=== PATIENT | male | born 1940 | race Caucasian/White ===

== ENCOUNTER 2016-11-19 14:18 | Outpatient (CLI) | payer OTHER ==
[2015-11-07 17:54] VITALS: BP 150/57
[2016-11-19 14:49] LABS: BASOPHILS % 0.4 (0.0-1.5); EOSINOPHILS % 14.1 % (0.0-6.8); LYMPHOCYTES # 1.4 # k/uL (0.6-4.0); MEAN CORPUSCULAR HEMOGLOBIN 31.9 pg (28.0-34.0); MONOCYTES # 0.5 # k/uL (0.0-0.9); MONOCYTES % 6.6 % (0.0-11.0); NEUTROPHILS # 4.7 # k/uL (1.4-7.7)
[2016-11-19 15:07] LABS: eGFR (African) 58; eGFR (Non-African) 48
== END 2016-11-19 14:20 ==
LOC: LAB 14:18
PROVIDERS: ATTEND Family Medicine
DX: I10 Essential (primary) hypertension (principal); D64.9 Anemia, unspecified
CPT/HCPCS: 36415; 80048; 85025

== ENCOUNTER 2016-12-27 10:50 | Outpatient (CLI) | payer OTHER ==
[2015-11-07 17:54] VITALS: BP 150/57
[2016-12-27 11:08] LABS: eGFR (African) 58; eGFR (Non-African) 48
[2016-12-27 11:46] LABS: MEAN CORPUSCULAR HEMOGLOBIN 31.6 pg (28.0-34.0)
[2016-12-27 12:29] LABS: EOSINOPHILS % 11 % (0-7); MONOCYTES % 5 % (0-11); SEGMENTED NEUTROPHILS % 72 % (39-79)
== END 2016-12-27 10:52 ==
LOC: LABRHC 10:50
PROVIDERS: ATTEND Family Medicine
DX: D50.0 Iron deficiency anemia secondary to blood loss (chronic) (principal)
CPT/HCPCS: 80048; 85025

== ENCOUNTER 2017-01-08 13:08 | Outpatient (CLI) | payer OTHER ==
[2015-11-07 17:54] VITALS: BP 150/57
[2017-01-08 13:23] LABS: BASOPHILS % 0.4 (0.0-1.5); EOSINOPHILS % 13.4 % (0.0-6.8); LYMPHOCYTES # 1.1 # k/uL (0.6-4.0); MEAN CORPUSCULAR HEMOGLOBIN 31.3 pg (28.0-34.0); MONOCYTES # 0.4 # k/uL (0.0-0.9); MONOCYTES % 6.3 % (0.0-11.0); NEUTROPHILS # 3.5 # k/uL (1.4-7.7)
== END 2017-01-08 13:10 ==
LOC: LAB 13:08
PROVIDERS: ATTEND Family Medicine
DX: I10 Essential (primary) hypertension (principal); D64.9 Anemia, unspecified
CPT/HCPCS: 36415; 85025

== ENCOUNTER 2017-01-14 15:36 | Observation (INO) | payer OTHER ==
[2017-01-14 15:42] LABS: BASOPHILS % 0.3 (0.0-1.5); EOSINOPHILS % 9.5 % (0.0-6.8); MEAN CORPUSCULAR HEMOGLOBIN 31.1 pg (28.0-34.0); MONOCYTES # 0.3 # k/uL (0.0-0.9); MONOCYTES % 6.3 % (0.0-11.0); NEUTROPHILS # 3.4 # k/uL (1.4-7.7)
[2017-01-14] MEDS ORDERED: SALINE FLUSH 10 ML DISP.SYRIN IVF ONE (16:15)
[2017-01-14] MEDS ORDERED: diphenhydrAMINE HCL 25 MG TABLET PO PRN ×2 (16:30→18:41)
[2017-01-14] MEDS ORDERED: ACETAMINOPHEN 325 MG TABLET PO PRN ×2 (16:30→18:42)
[2017-01-14 17:22] VITALS: BMI 21.2
[2017-01-14] MEDS ORDERED: WARFARIN SODIUM 1 MG TABLET PO SCH (18:00)
--- NOTE | 2017-01-14 18:16 | History and Physical Report ---
History of Present Illnes - History of Present Illness Reason for Visit: Anemia History of Present Illness: This is a 76 year old male well known to myself, whom I called yesterday due to progressively dropping hemoglobin. His hemoglobin today as 7.8, down from 8.1 last week. Due to increased dyspnea and weakness as well as decreased exercise tolerance, he was admitted as observatin for tranfusion of two units of packed red blood cells. - Past Medical History Cardiac: AFIB, CHF, HTN Pulmonary: COPD Heme/Onc: Iron deficiency anemia - Past Surgical History Past Surgical History: None (patient unable to provide) - Past Social History Smoke: 1 pack per day Alcohol: Rare Drugs: None Lives: With Family (), Other (daughter in the local area) Domestic Violence: Negative - Health Maintenance Health Maintenance: Influenza Vaccine, Pneumococcal Vaccine Influenza Vaccine: Current for this Influenza Season Pneumonia Vaccine: Yes Resuscitation Status: Resusciation Status Resuscitation Status Full Code - Unable to Obtain History Unable to Obtain: No Review of Systems - Review of Systems Constitutional: negative: Fever, Chills Eyes: negative: pain ENT: negative: Ear Pain, Ear Discharge Respiratory: Cough, Shortness of Breath, SOB with Excertion. negative: Hemoptysis Cardiovascular: negative: Chest Pain Gastrointestinal: negative: Nausea, Vomiting Genitourinary: negative: Dysuria, Frequency Musculoskeletal: negative: Neck Pain, Shoulder Pain, Arm Pain Skin: negative: Rash Neurological: Weakness. negative: Confusion, Seizures - Medications/Allergies Allergies/Adverse Reactions: Allergies Allergy/AdvReac Type Severity Reaction Status Date / Time levofloxacin Allergy Intermediate bleeding Unverified 03/11/16 16:22 trazodone Allergy Mild Nausea/Vomi Unverified 11/28/15 14:49 ting Sulfa (Sulfonamide Allergy Verified 09/27/15 05:32 Antibiotics) [Sulfa(Sulfonamide Antibiotics)] Current Inpatient Medications: Current Inpatient Medications Acetaminophen (Tylenol) 650 mg PO Q4H PRN PRN Reason: Fever >101 Albuterol/Ipratropium (Duoneb) 3 ml NEB Q4 PRN PRN Reason: Wheezing Budesonide (Pulmicort) 0.5 mg NEB BID LCU Carvedilol (Coreg) 25 mg PO BID LUC Diphenhydramine HCl (Benadryl) 25 mg PO Q4 PRN PRN Reason: Allergy Symptoms Ferrous Sulfate (Feosol) 325 mg PO 1100 LUC Furosemide (Lasix) 20 mg IVP 714 LUC Lisinopril (Prinivil) 40 mg PO DAILY LUC Simvastatin (Zocor) 20 mg PO HS LUC Warfarin Sodium (Coumadin) 3 mg PO [id number] LUC Exam - Exam Vital Signs: Vital Signs (72 hours) 01/14/17 16:34 Temperature 99.2 F Pulse Rate [ 85 Right Radial] Respiratory 18 Rate Blood Pressure 165/76 [Right Arm] O2 Sat by Pulse 91 L Oximetry General: Alert, Oriented to Person, Oriented to Place, Oriented to Time, Cooperative, Moderate distress (respiratory) HEENT: Atraumatic, PERRLA, EOMI, Other (conjunctival pallor is noted) Neck: No: Stridor Lungs: Wheezes, Prolonged Expiration, Decreased Air Movement Cardiovascular: Irregularly Irregular Murmur: Systolic Murmur Murmur Location: Left Sternal Boarder Heart Murmur Grade: II Abdomen: Normal bowel sounds, Soft Genitourinary: No: Right Inguinal Hernia, Left Inguinal Hernia Male Genitourinary: No: Scrotal Edema Female Genitourinary: No: Other Integumentary: Pale Extremities: No clubbing, No cyanosis, Other (edema is 2+ in RLE, trace edema in the dorsum of the left foot) Neurological: Normal speech, Strength Equal Bilat Psych/Mental Status: Mental status NL - Laboratory Results Laboratory Results: Laboratory Results 01/14/17 15:40 WBC 5.40 RBC 2.51 L Hgb 7.8 L Hct 24.7 L MCV 98.3 MCH 31.1 MCHC 31.7 RDW 15.2 H Plt Count 233 Neut % (Auto) 64.1 Lymph % (Auto) 18.4 [place] % (Auto) 6.3 Eos % (Auto) 9.5 H Baso % (Auto) 0.3 Neut # 3.4 Lymph # 1.0 [place] # 0.3 Eos # 0.5 Baso # 0.0 Reactive Lymphs % 1.4 Reactive Lymphs # 0.1 Assessment/Plan - Assessment/Plan (1) Anemia Status: Acute Current Visit: No Qualifiers: Anemia type: other cause Other causes of anemia: acute posthemorrhagic Qualified Code(s): D62 - Acute posthemorrhagic anemia Assessment: Admit for transfusion of two units of packed red blood cells Plan: Check CBC in am (2) COPD (chronic obstructive pulmonary disease) Status: Acute Current Visit: No Qualifiers: COPD type: COPD with acute exacerbation Qualified Code(s): J44.1 - Chronic obstructive pulmonary disease with (acute) exacerbation Assessment: Continue duoneb treatments (3) CHF (congestive heart failure) Status: Chronic Current Visit: No Qualifiers: Congestive heart failure type: combined Congestive heart failure chronicity : acute on chronic Qualified Code(s): I50.43 - Acute on chronic combined systolic (congestive) and diastolic (congestive) heart failure Assessment: lasix after each unit of packed red blood cells VTE Assessment - RISK FACTOR SCORE VTE RISK FACTOR SCORES: AGE OVER 60 YEARS, ACUTE RESPIRATORY FAILURE/SEVERE COPD - RISK VTE MODERATE RISK: SCORE OF 2 (RISK PROXIMAL DVT 2-4%) PROPHYAXIS NEEDED ( Already on warfarin with therapeutic INR, ordered ANA crawford)
[2017-01-14] MEDS: IPRATROPIUM/ALBUTEROL SULFATE 3 ML AMPUL.NEB NEB PRN (18:17)
[2017-01-14] MEDS ORDERED: ACETAMINOPHEN 325 MG TABLET ONE (18:30)
[2017-01-14] MEDS ORDERED: CARVEDILOL 12.5 MG TABLET PO ONE ×2 (18:30→20:44)
[2017-01-14] MEDS ORDERED: diphenhydrAMINE HCL 25 MG TABLET PO ONE (18:39)
[2017-01-14] MEDS ORDERED: 0.9 % SODIUM CHLORIDE 100 ML IV ONE (18:44)
[2017-01-14] MEDS ORDERED: CARVEDILOL 25 MG TABLET PO SCH (21:00)
[2017-01-14] MEDS ORDERED: BUDESONIDE 0.5MG/2ML AMPUL.NEB NEB SCH (21:00)
[2017-01-14] MEDS ORDERED: SIMVASTATIN 20 MG TABLET PO SCH (21:00)
[2017-01-14] MEDS: FUROSEMIDE 20 MG/2 ML VIAL IVP SCH (22:20)
[2017-01-14 23:10] LABS: IRON SERUM 35 ug/dL (59-158); SERUM IRON 35 ug/dL (59-158)
[2017-01-15] MEDS ORDERED: SALINE FLUSH 10 ML DISP.SYRIN IVF ONE (02:57)
[2017-01-15] MEDS: FUROSEMIDE 20 MG/2 ML VIAL IVP SCH ×2 (03:04→07:13)
[2017-01-15] MEDS ORDERED: CARVEDILOL 12.5 MG TABLET PO ONE (05:46)
[2017-01-15] MEDS: IPRATROPIUM/ALBUTEROL SULFATE 3 ML AMPUL.NEB NEB PRN (07:11)
[2017-01-15 07:16] LABS: MEAN CORPUSCULAR HEMOGLOBIN 29.6 pg (28.0-34.0)
[2017-01-15] MEDS ORDERED: LISINOPRIL 20 MG TABLET PO SCH (09:00)
[2017-01-15] MEDS ORDERED: CARVEDILOL 12.5 MG TABLET PO SCH (09:00)
[2017-01-15 09:48] VITALS: BP 121/70
[2017-01-15] MEDS ORDERED: FERROUS SULFATE 325 MG TABLET PO SCH (11:00)
--- NOTE | 2017-01-15 14:19 | Discharge Summary ---
DATE OF ADMISSION: January 14, 2017 DATE OF DISCHARGE: January 15, 2017 DIAGNOSES ON THIS HOSPITALIZATION: 1. Anemia. 2. Chronic obstructive pulmonary disease (COPD). 3. Dyspnea. 4. Congestive heart failure. SUMMARIZATION OF ADMISSION HISTORY AND PHYSICAL: This is a 76-year-old male who I saw in the clinic on the day of admission. At that time, he was noted to be having markedly increased dyspnea and shortness of breath. His hemoglobin at that point was noted to be 7.8. It has been drifting down slowly and as a result, he was admitted for transfusion of 2 units of packed red blood cells. HOSPITAL COURSE: He was admitted. His initial hemoglobin was as previously stated and he was transfused 2 units of packed red blood cells; and by the next morning, his hemoglobin was 9.5. Iron studies showed him to be low on iron, so we will be setting him up for Venofer infusions as an outpatient. We will see him back next week to arrange that. CONDITION ON DISCHARGE: Discharge is to home in improved condition. JUNIOR
== END 2017-01-15 10:00 | disposition home or self-care (01) ==
LOC: LABRHC 15:36 → SOUTH 16:00
PROVIDERS: ADMIT Family Medicine; ATTEND Family Medicine
DX: D64.9 Anemia, unspecified (principal); I50.9 Heart failure, unspecified; J44.9 Chronic obstructive pulmonary disease, unspecified; R06.02 Shortness of breath
CPT/HCPCS: 36415; 80048; 82608; 82746; 83540; 83550; 85025; 85027; 85045; 86885; 86900; 86901; 86920; 94640; 94760; G0378; J1940; J7626; Q0163; 36430; 96361; 96374; 96376; P9040; S1016

== ENCOUNTER 2017-01-16 04:47 | Inpatient (IN) | payer OTHER ==
[2017-01-16 05:20] LABS: BASOPHILS % 0.6 (0.0-1.5); LYMPHOCYTES # 0.9 # k/uL (0.6-4.0); MEAN CORPUSCULAR HEMOGLOBIN 30.1 pg (28.0-34.0); MONOCYTES # 0.5 # k/uL (0.0-0.9); MONOCYTES % 7.1 % (0.0-11.0); NEUTROPHILS # 4.5 # k/uL (1.4-7.7)
[2017-01-16 05:34] LABS: eGFR (African) 58; eGFR (Non-African) 48
[2017-01-16] MEDS ORDERED: FUROSEMIDE 40 MG/4 ML VIAL IVP ONE (06:11)
--- NOTE | 2017-01-16 06:18 | ED Physician Documentation ---
Dyspnea - HISTORIAN Historian: patient - HPI Stated Complaint: Dyspnea Chief Complaint: Dyspnea Onset: hours Duration: continues in ED Initiating Event: other (admission, 2 units RBCs) Severity: moderate Exacerbated By: exertion, laying flat Associated Symptoms: none. denies: productive cough Further Comments: yes (76 year old male patient brought in via EMS with c/o dyspnea. Patient states he cannot lie back to sleep, c/o difficulty breathing with minimal exerction. EMS gave duoneb and albuterol in route for "tightness" . Sat 96% on 3L NC) - ROS CONST: recent illness (Anemia requiring transfusion) EYES/ENT: none GI/: none NEURO/PSYCH: denies: headache MS/SKIN/LYMPH: none - PAST HX Lung Disease: COPD, other (Fe Def Anemia) Cardiac Disease: CHF, A-Fib, other (HLD) PE Risk Factors: hypertension Surgeries/Procedures: appendectomy, other (Hemorrhoidectomy) Immunizations: UTD Allergies/Adverse Reactions: Allergies Allergy/AdvReac Type Severity Reaction Status Date / Time levofloxacin Allergy Intermediate bleeding Verified 01/16/17 05:22 trazodone Allergy Mild Nausea/Vomi Verified 01/16/17 05:22 ting Sulfa (Sulfonamide Allergy Verified 01/16/17 05:22 Antibiotics) [Sulfa(Sulfonamide Antibiotics)] Home Medications: Ambulatory Orders Medication Instructions Recorded Oxygen 4 lt NS SEE.INSTRUCTIONS 07/06/13 Potassium Chloride [Klor-Con M10] 10 meq PO D 05/29/14 Diclofenac Sodium [Voltaren] 75 mg PO BID 10/22/15 Warfarin Sodium [Warfarin Sodium] 2.5 mg PO BID 01/16/17 Warfarin Sodium [Warfarin Sodium] 2.5 mg PO MF12 01/16/17 - SOCIAL HX Smoking History: cigarettes - FAMILY HX Family History: denies: none - VITAL SIGNS Vital Signs: Vital Signs Temp Pulse Resp BP Pulse Ox 98 F 75 20 169/65 100 01/16/17 04:54 01/16/17 05:30 01/16/17 04:54 01/16/17 04:54 01/16/17 05:30 - REVIEWED ASSESSMENTS Nursing Assessment Reviewed: Yes Vitals Reviewed: Yes Progress - Progress Progress: 0615 Reviewed lab and xray results with patient and family, recommended admission for treatment of CHF. Patient prefers admission to [facility], does not want to transfer to higher level of care. [address] Ramirez, will admit acute for treatment of CHF. ED Results Lab/Radiology - Lab Results Lab Results: Lab Results 01/16/17 01/16/17 01/16/17 05:15 05:15 05:15 WBC 6.80 K/ul K/ul (4.00-12.00) RBC 3.34 M/ul L M/ul (3.90-5.20) Hgb 10.1 g/dL L g/dL (12.0-18.0) Hct 31.9 % L % (37.0-53.0) MCV 95.5 fl fl (80.0-100.0) MCH 30.1 pg pg (28.0-34.0) MCHC 31.5 g/dL g/dL (30.0-36.0) RDW 16.1 % H % (11.3-14.3) Plt Count 191 K/mm3 K/mm3 (130-400) Neut % (Auto) 65.2 % % (39.0-79.0) Lymph % (Auto) 12.8 % L % (16.0-50.0) [place] % (Auto) 7.1 % % (0.0-11.0) Eos % (Auto) 13.0 % H % (0.0-6.8) Baso % (Auto) 0.6 (0.0-1.5) Neut # 4.5 # k/uL # k/uL (1.4-7.7) Lymph # 0.9 # k/uL # k/uL (0.6-4.0) [place] # 0.5 # k/uL # k/uL (0.0-0.9) Eos # 0.9 # k/uL H # k/uL (0.0-0.6) Baso # 0.0 # k/uL # k/uL (0.0-0.5) Reactive Lymphs % 1.3 % % (0.0-5.0) Reactive Lymphs # 0.1 # k/uL # k/uL (0.0-0.8) Sodium 137 mmol/L mmol/L (136-145) Potassium 4.0 mmol/L mmol/L (3.5-5.0) Chloride 99 mmol/L mmol/L (98-110) Carbon Dioxide > 40 mmol/L H mmol/L (20-32) BUN 27 mg/dL H mg/dL (10-26) Creatinine 1.5 mg/dL mg/dL (0.4-1.5) Estimated Creat Clear 37 Est GFR ( Amer) 58 L (60 - ) Est GFR (Non-Af Amer) 48 L (60 - ) Glucose 104 mg/dL H mg/dL (70-99) Calcium 10.4 mg/dL mg/dL (8.5-10.5) Total Bilirubin 0.6 mg/dL mg/dL (0.2-1.2) AST 18 U/L U/L (0-41) ALT 11 U/L U/L (0-45) Alkaline Phosphatase 62 U/L U/L (46-116) Troponin I < 0.03 ng/mL L ng/mL (0.03-0.06) NT-Pro-B Natriuret Pep 6078.9 pg/mL H pg/mL (15.0-450.0) Total Protein 7.2 g/dL g/dL (6.0-8.5) Albumin 4.0 g/dL g/dL (3.0-5.5) - Radiology Radiology Impressions: Portable chest History: Dyspnea Findings: Bilateral costophrenic sulcus blunting, cardiomegaly, and aortic atherosclerosis are observed. Hazy opacity is present at each lung base. Impression: Small pleural effusions, cardiomegaly, atherosclerosis, and possibly mild pulmonary edema, suggesting congestive heart failure. Electronically signed on Jan 16, 2017 5:26:17 AM CRUISE AGENT by: Blanco Youngblood - Orders Orders: ED Orders Category Date Time Status Continuous EKG monitoring Q30M Care 01/16/17 04:57 Active Continuous Pulse Oximetry Q30M Care 01/16/17 04:[address] Saline Lock/IV NOW Care 01/16/17 04:57 Active CHEST 1 VIEW [RAD] Stat Exams 01/16/17 04:58 Taken BNP [NT-proBNP] Stat Lab 01/16/17 05:15 Completed CBC/PLATELET/DIFF Stat Lab 01/16/17 05:15 Completed CMP Stat Lab 01/16/17 05:15 Completed TROPONIN I (cTnI) Stat Lab 01/16/17 05:15 Completed Furosemide [Lasix] Med 01/16/17 06:11 Discontinued 40 mg IVP NOW ONE Oxygen Daily Oxygen 01/16/17 05:00 Ordered Dyspnea Physical Exam - EXAM General Appearance: moderate distress EENT: eye inspection normal, pharynx normal, no signs of dehydration, ARNIE. No : dry mucous membranes Respiratory: no resp. distress, no pain on inspiration, speaks full sentences, decreased air movement (bases bilaterally, no wheezing) CVS: no gallop, no friction rub, pulses full, pulses equal, irregularly irreg. rhythm, murmur (MR) Abdomen: non-tender, no organomegaly, no distention, no ascites Skin: no rash, pallor, warm, nml palp., dry Extremities: non-tender, no evidence of injury, no edema, other (generalized weakness) Neuro/Psych: oriented x3, CN's nml as tested, motor nml, sensation nml, mood/ affect nml Discharge Clincal Impression: CHF (congestive heart failure) Qualifiers: Congestive heart failure type: combined Congestive heart failure chronicity: acute on chronic Qualified Code(s): I50.43 - Acute on chronic combined systolic (congestive) and diastolic (congestive) heart failure Referrals: Lance Ramirez MD [Primary Care Provider] - 2 Days Home Medications: Ambulatory Orders Oxygen 4 lt NS SEE.INSTRUCTIONS 07/06/13 Potassium Chloride [Klor-Con M10] 10 meq PO D 05/29/14 Diclofenac Sodium [Voltaren] 75 mg PO BID 10/22/15 Warfarin Sodium [Warfarin Sodium] 2.5 mg PO BID 01/16/17 Warfarin Sodium [Warfarin Sodium] 2.5 mg PO MF12 01/16/17 Condition: Fair Decision to Admit: [id number] Decision Time: 06:23
[2017-01-16] MEDS ORDERED: OXYGEN NS SCH (06:45)
--- NOTE | 2017-01-16 07:25 | Diagnostic Imaging Report ---
JUNE RED (BRANCH OPERATIONS SPECIALIST) - ER [facility] [address] [facility].[address] [address] Report Submission Date: Jan 16, 2017 5:26:17 AM BETTING CLERK Patient Study Name: ARMOND DAVIS Date: Jan 16, 2017 5:16:43 AM BETTING CLERK Modality Type: CR Gender: M Description: CHEST : 38 Institution: [facility] Physician: JUNE RED (BRANCH OPERATIONS SPECIALIST) - ER Portable chest History: Dyspnea Findings: Bilateral costophrenic sulcus blunting, cardiomegaly, and aortic atherosclerosis are observed. Hazy opacity is present at each lung base. Impression: Small pleural effusions, cardiomegaly, atherosclerosis, and possibly mild pulmonary edema, suggesting congestive heart failure. Electronically signed on Jan 16, 2017 5:26:17 AM BETTING CLERK by: Blanco PACHECO
[2017-01-16 08:41] VITALS: BMI 21.1
[2017-01-16] MEDS: BUDESONIDE 0.5MG/2ML AMPUL.NEB NEB SCH (10:13)
[2017-01-16] MEDS: IPRATROPIUM/ALBUTEROL SULFATE 3 ML AMPUL.NEB NEB SCH ×4 (10:16→20:58)
--- NOTE | 2017-01-16 11:15 | History and Physical Report ---
History of Present Illnes - History of Present Illness Reason for Visit: Congestive Heart Failure, COPD History of Present Illness: This is a 76 year old male well known to myself. He was in the hospital earlier this week due to dyspnea and a hemoglobin of 7.8. He was transfused 2 units of packed red blood cells and was initially feeling better. He was given extra IV lasix after each unit of PRBC, however despite this, he developed an exacerbation of his congestive heart failure. His BNP was elevated at 6,000+. His hemoglobin has improved to 10.1 from 9.5 on discharge. - Past Medical History Cardiac: AFIB, CHF, HTN Pulmonary: COPD Heme/Onc: Iron deficiency anemia - Past Surgical History Past Surgical History: None (patient unable to provide) - Past Social History Smoke: 1 pack per day Alcohol: Rare Drugs: None Lives: With Family (), Other (daughter in the local area) Domestic Violence: Negative - Health Maintenance Health Maintenance: Influenza Vaccine, Pneumococcal Vaccine Influenza Vaccine: Current for this Influenza Season Pneumonia Vaccine: Yes Resuscitation Status: Resusciation Status Resuscitation Status Do Not Resuscitate - Unable to Obtain History Unable to Obtain: No Review of Systems - Review of Systems Constitutional: negative: Fever, Chills, Sweats Eyes: negative: pain, vision change ENT: negative: Ear Pain, Ear Discharge Respiratory: Cough, Shortness of Breath, SOB with Excertion. negative: Hemoptysis Cardiovascular: negative: Chest Pain, Palpitations Gastrointestinal: negative: Nausea, Vomiting Genitourinary: negative: Dysuria, Other Musculoskeletal: negative: Neck Pain Skin: negative: Rash, Lesions Neurological: Weakness. negative: Confusion - Medications/Allergies Allergies/Adverse Reactions: Allergies Allergy/AdvReac Type Severity Reaction Status Date / Time levofloxacin Allergy Intermediate bleeding Verified 01/16/17 05:22 trazodone Allergy Mild Nausea/Vomi Verified 01/16/17 05:22 ting Sulfa (Sulfonamide Allergy Verified 01/16/17 05:22 Antibiotics) [Sulfa(Sulfonamide Antibiotics)] Home Medications: Home Medications Warfarin Sodium [Warfarin Sodium] 2.5 mg PO M1800 01/16/17 Warfarin Sodium [Warfarin Sodium] 5 mg PO [id number] 01/16/17 Current Inpatient Medications: Current Inpatient Medications Albuterol/Ipratropium (Duoneb) 3 ml NEB QID LUC Last Admin: 01/16/17 10:16 Dose: 3 ml Amlodipine Besylate (Norvasc) 10 mg PO DAILY [facility] Budesonide (Pulmicort) 0.5 mg NEB BID [facility] Last Admin: 01/16/17 10:13 Dose: 0.5 mg Carvedilol (Coreg) 25 mg PO BID [facility] Lisinopril (Prinivil) 40 mg PO DAILY [facility] Potassium Chloride (Klor-Con M20) 20 meq PO DAILY [facility] Simvastatin (Zocor) [address] [facility] Exam - Exam Vital Signs: Vital Signs (72 hours) 01/16/17 01/16/17 01/16/17 06:44 08:20 08:38 Temperature 98.2 F Pulse Rate 64 Pulse Rate [ 79 Left Pulse ox] Pulse Rate [ 84 Right] Respiratory 20 20 Rate Blood Pressure 162/66 149/73 [Right Arm] O2 Sat by Pulse 100 99 99 Oximetry 01/16/17 01/16/17 01/16/17 09:00 10:00 10:30 Temperature 98.2 F Pulse Rate 68 74 Pulse Rate [ Left Pulse ox] Pulse Rate [ 83 Right] Respiratory 20 Rate Blood Pressure 162/62 [Right Arm] O2 Sat by Pulse 99 100 100 Oximetry General: Alert, Oriented to Person, Oriented to Place, Oriented to Time, Cooperative, No acute distress HEENT: Atraumatic, PERRLA, EOMI Neck: No: Stridor, Rigidity Lungs: Wheezes, Prolonged Expiration, Decreased Air Movement Cardiovascular: Irregularly Irregular Murmur: Systolic Murmur Heart Murmur Grade: II Abdomen: Normal bowel sounds, Soft, No tenderness Genitourinary: No: Right Inguinal Hernia, Left Inguinal Hernia Male Genitourinary: No: Scrotal Edema Female Genitourinary: No: Other Integumentary: Normal, [place], Warm, Dry Extremities: Other (edema is improved) Neurological: Normal speech, Strength Equal Bilat Psych/Mental Status: Mental status NL Assessment/Plan - Assessment/Plan (1) CHF (congestive heart failure) Status: Chronic Current Visit: Yes Qualifiers: Congestive heart failure type: combined Congestive heart failure chronicity : acute on chronic Qualified Code(s): I50.43 - Acute on chronic combined systolic (congestive) and diastolic (congestive) heart failure Assessment: Continue aggressive diuresis Follow electrolytes Hope for discharge tomorrow am (2) Anemia Status: Acute Current Visit: No Qualifiers: Anemia type: other cause Other causes of anemia: acute posthemorrhagic Qualified Code(s): D62 - Acute posthemorrhagic anemia Assessment: improved after transfusion (3) COPD (chronic obstructive pulmonary disease) Status: Acute Current Visit: No Qualifiers: COPD type: COPD with acute exacerbation Qualified Code(s): J44.1 - Chronic obstructive pulmonary disease with (acute) exacerbation Assessment: Chronic Plan: Encouraged smoking cessation Nebulizer treatments VTE Assessment - RISK FACTOR SCORE VTE RISK FACTOR SCORES: AGE OVER 60 YEARS, ACUTE RESPIRATORY FAILURE/SEVERE COPD , CONGESTIVE HEART FAILURE OR MYOCARDIAL INFARCTION - RISK VTE HIGH RISK: SCORE OF 3-4 (RISK PROXIMAL DVT 4-8%) PROPHYLAXIS NEEDED (has therapeutic INR, ANA lilibethe ordered)
[2017-01-16] MEDS ORDERED: SIMVASTATIN 20 MG TABLET ONE ×2 (11:31→13:14)
[2017-01-16] MEDS: LISINOPRIL 20 MG TABLET PO SCH (12:25)
[2017-01-16] MEDS: amLODIPine BESYLATE 5 MG TABLET PO SCH (12:26)
[2017-01-16] MEDS: CARVEDILOL 12.5 MG TABLET PO SCH ×2 (12:27→20:52)
[2017-01-16] MEDS: POTASSIUM CHLORIDE 20 MEQ TABLET.ER PO SCH (12:30)
[2017-01-16] MEDS: SIMVASTATIN 20 MG TABLET PO SCH (20:52)
[2017-01-17] MEDS: BUDESONIDE 0.5MG/2ML AMPUL.NEB NEB SCH ×3 (00:07→21:40)
[2017-01-17 06:30] LABS: BASOPHILS % 0.5 (0.0-1.5); EOSINOPHILS % 11.8 % (0.0-6.8); LYMPHOCYTES # 0.8 # k/uL (0.6-4.0); MONOCYTES # 0.4 # k/uL (0.0-0.9); NEUTROPHILS # 3.3 # k/uL (1.4-7.7)
[2017-01-17 06:52] LABS: eGFR (African) 58; eGFR (Non-African) 48
[2017-01-17] MEDS: POTASSIUM CHLORIDE 20 MEQ TABLET.ER PO SCH (07:34)
[2017-01-17] MEDS: SIMVASTATIN 20 MG TABLET PO SCH (07:34)
[2017-01-17] MEDS: LISINOPRIL 20 MG TABLET PO SCH (07:36)
[2017-01-17] MEDS: amLODIPine BESYLATE 5 MG TABLET PO SCH (07:36)
[2017-01-17] MEDS: CARVEDILOL 12.5 MG TABLET PO SCH ×2 (07:36→20:06)
[2017-01-17] MEDS: IPRATROPIUM/ALBUTEROL SULFATE 3 ML AMPUL.NEB NEB SCH ×4 (07:40→21:25)
[2017-01-17] MEDS ORDERED: FUROSEMIDE 40 MG/4 ML VIAL IVP ONE (08:20)
--- NOTE | 2017-01-17 08:25 | Inpatient Progress Note ---
Subjective - Required Recertification Statement I anticipate X number of days because-include discharge plan: 1 - Review of Systems Events since last encounter: Kian is still very short of breath. He is diuresing well. His hemoblobin has dropped to 9.5 this morning. He says that he is not having any chest pain. He does agree to see Dr. Rodriguez when he is here next week. He has not seen a client relations associate for about 7 years. General: Denies: Chills, Night Sweats HEENT: Denies: Head Aches Pulmonary: Dyspnea Cardiovascular: Orthopnea, Paroxysmal Noc. Dyspnea, Edema (improved). Denies: Chest Pain, Palpitations Gastrointestinal: Denies: Nausea Genitourinary: Denies: Dysuria Musculoskeletal: Denies: Neck Pain, Shoulder Pain Neurological: Weakness. Denies: Confusion Objective - Exam Vitals and I&O: Vital Signs Temp 97.6 F 01/17/17 06:00 Pulse 76 01/17/17 06:00 Resp 18 01/17/17 06:00 BP 124/78 01/17/17 06:00 Pulse Ox 100 01/17/17 06:00 Intake & Output 01/16/17 01/16/17 01/17/17 11:59 23:59 11:59 Intake Total 480 330 Output Total 600 Balance 480 -270 Weight 63.049 kg Intake: Oral 480 330 Output: Urine 600 Other: Voiding Method Urinal Urinal # Voids 1 2 # Bowel Movements 0 General: Alert, Oriented to Person, Oriented to Place, Oriented to Time, Cooperative, Mild distress (respiratory) HEENT: Atraumatic, PERRLA, EOMI Neck: Supple, No JVD Lungs: Wheezes, Prolonged Expiration, Decreased Air Movement Cardiovascular: Irregularly Irregular Abdomen: Normal bowel sounds, Soft, No tenderness Extremities: Other (edema is unchanged from yesterday, improved from admission) Skin: Normal, [place], Warm Neurological: Normal speech Psych/Mental Status: Mental status NL - Results Results: Laboratory Results WBC 5.20 K/ul (4.00-12.00) 01/17/17 06:20 RBC 3.27 M/ul (3.90-5.20) L 01/17/17 06:20 Hgb 9.5 g/dL (12.0-18.0) L 01/17/17 06:20 Hct 31.4 % (37.0-53.0) L 01/17/17 06:20 MCV 95.9 fl (80.0-100.0) 01/17/17 06:20 MCH 29.0 pg (28.0-34.0) 01/17/17 06:20 MCHC 30.2 g/dL (30.0-36.0) 01/17/17 06:20 RDW 15.8 % (11.3-14.3) H 01/17/17 06:20 Plt Count 173 K/mm3 (130-400) 01/17/17 06:20 Neut % (Auto) 63.1 % (39.0-79.0) 01/17/17 06:20 Lymph % (Auto) 15.3 % (16.0-50.0) L 01/17/17 06:20 [place] % (Auto) 8.0 % (0.0-11.0) 01/17/17 06:20 Eos % (Auto) 11.8 % (0.0-6.8) H 01/17/17 06:20 Baso % (Auto) 0.5 (0.0-1.5) 01/17/17 06:20 Neut # 3.3 # k/uL (1.4-7.7) 01/17/17 06:20 Lymph # 0.8 # k/uL (0.6-4.0) 01/17/17 06:20 [place] # 0.4 # k/uL (0.0-0.9) 01/17/17 06:20 Eos # 0.6 # k/uL (0.0-0.6) 01/17/17 06:20 Baso # 0.0 # k/uL (0.0-0.5) 01/17/17 06:20 Reactive Lymphs % 1.2 % (0.0-5.0) 01/17/17 06:20 Reactive Lymphs # 0.1 # k/uL (0.0-0.8) 01/17/17 06:20 PT 21.8 Seconds (9.7-11.5) H 01/16/17 05:30 INR 2.0 (0.9-1.1) H 01/16/17 05:30 Sodium 141 mmol/L (136-145) 01/17/17 06:20 Potassium 4.2 mmol/L (3.5-5.0) 01/17/17 06:20 Chloride 103 mmol/L (98-110) 01/17/17 06:20 Carbon Dioxide > 40 mmol/L (20-32) H 01/17/17 06:20 BUN 27 mg/dL (10-26) H 01/17/17 06:20 Creatinine 1.5 mg/dL (0.4-1.5) 01/17/17 06:20 Estimated Creat Clear 36 01/17/17 06:20 Est GFR ( Amer) 58 (60-) L 01/17/17 06:20 Est GFR (Non-Af Amer) 48 (60-) L 01/17/17 06:20 Glucose 92 mg/dL (70-99) 01/17/17 06:20 Calcium 10.0 mg/dL (8.5-10.5) 01/17/17 06:20 Total Bilirubin 0.6 mg/dL (0.2-1.2) 01/17/17 06:20 AST 14 U/L (0-41) 01/17/17 06:20 ALT 8 U/L (0-45) 01/17/17 06:20 Alkaline Phosphatase 56 U/L (46-116) 01/17/17 06:20 Troponin I < 0.03 ng/mL (0.03-0.06) L 01/16/17 05:15 NT-Pro-B Natriuret Pep 6078.9 pg/mL (15.0-450.0) H 01/16/17 05:15 Total Protein 6.5 g/dL (6.0-8.5) 01/17/17 06:20 Albumin 3.7 g/dL (3.0-5.5) 01/17/17 06:20 Assessment/Plan - Assessment/Plan (1) CHF (congestive heart failure) Status: Chronic Current Visit: Yes Qualifiers: Congestive heart failure type: combined Congestive heart failure chronicity : acute on chronic Qualified Code(s): I50.43 - Acute on chronic combined systolic (congestive) and diastolic (congestive) heart failure Assessment: Slightly improved Plan: Continue diuresis Cardiology consult next week (2) Anemia Status: Acute Current Visit: No Qualifiers: Anemia type: other cause Other causes of anemia: acute posthemorrhagic Qualified Code(s): D62 - Acute posthemorrhagic anemia Assessment: Follow CBC (3) COPD (chronic obstructive pulmonary disease) Status: Acute Current Visit: No Qualifiers: COPD type: COPD with acute exacerbation Qualified Code(s): J44.1 - Chronic obstructive pulmonary disease with (acute) exacerbation Assessment: Continue nebulizer therapy/O2
[2017-01-17] MEDS ORDERED: WARFARIN SODIUM 5 MG TABLET PO SCH (18:00)
[2017-01-17] MEDS ORDERED: WARFARIN SODIUM 5 MG TABLET PO ONE (20:34)
[2017-01-17] MEDS ORDERED: WARFARIN SODIUM 1 MG TABLET PO ONE (20:43)
[2017-01-17] MEDS ORDERED: WARFARIN SODIUM 1 MG TABLET PO SCH (21:00)
[2017-01-18 06:41] LABS: MEAN CORPUSCULAR HEMOGLOBIN 30.7 pg (28.0-34.0)
[2017-01-18 07:01] LABS: eGFR (African) > 60; eGFR (Non-African) 57
[2017-01-18] MEDS: POTASSIUM CHLORIDE 20 MEQ TABLET.ER PO SCH (09:28)
[2017-01-18] MEDS: CARVEDILOL 12.5 MG TABLET PO SCH (09:28)
[2017-01-18] MEDS: LISINOPRIL 20 MG TABLET PO SCH (09:29)
[2017-01-18] MEDS: amLODIPine BESYLATE 5 MG TABLET PO SCH (09:30)
[2017-01-18] MEDS: IPRATROPIUM/ALBUTEROL SULFATE 3 ML AMPUL.NEB NEB SCH ×2 (09:34→12:20)
[2017-01-18] MEDS: BUDESONIDE 0.5MG/2ML AMPUL.NEB NEB SCH (09:36)
[2017-01-18 14:17] VITALS: BP 145/48
--- NOTE | 2017-01-20 12:57 | Discharge Summary ---
DATE OF ADMISSION: January 16, 2017 DATE OF DISCHARGE: January 18, 2017 DIAGNOSES ON THIS HOSPITALIZATION: 1. Congestive heart failure. 2. Anemia. 3. Chronic obstructive pulmonary disease. SUMMARIZATION OF ADMISSION HISTORY AND PHYSICAL: This is 76-year-old male well known to myself presented to the ER with increasing shortness of breath. He had been in the hospital the day before and was transfused 2 units of packed red blood cells because of a hemoglobin of 7.8. He was given extra Lasix after each unit and then his regular Lasix dose was resumed. Despite this, he developed congestive heart failure and came back in for reevaluation. HOSPITAL COURSE: He was admitted and IV diuresis was undertaken with IV Lasix. He diuresed very well. Renal function was preserved during this hospital stay. He was discharged to home with resumption of all of his current medications as prior to admission. Avoid salty foods. Follow up with Dr. Ramirez next week. CONDITION ON DISCHARGE: Condition on discharge is improved. JUNIOR
[2017-01-20] MEDS ORDERED: WARFARIN SODIUM 2.5 MG TABLET PO SCH (18:00)
== END 2017-01-18 14:18 | disposition home or self-care (01) | DRG 293 ==
LOC: ED 04:47 → SOUTH 06:36
PROVIDERS: ADMIT Family Medicine; ATTEND Family Medicine
DX: I50.9 Heart failure, unspecified (principal); D64.9 Anemia, unspecified; J44.9 Chronic obstructive pulmonary disease, unspecified
CPT/HCPCS: 36415; 71010; 80048; 80053; 83880; 84484; 85025; 85027; 85610; 93005; A9270; J1940; J7626; 96374; 99223; 99233; 99238; 99284

== ENCOUNTER 2017-01-24 17:04 | Outpatient (CLI) | payer OTHER ==
[2017-01-24 17:12] LABS: BASOPHILS % 0.6 (0.0-1.5); MEAN CORPUSCULAR HEMOGLOBIN 30.3 pg (28.0-34.0); MONOCYTES # 0.4 # k/uL (0.0-0.9); NEUTROPHILS # 4.4 # k/uL (1.4-7.7)
== END 2017-01-24 17:05 ==
LOC: LABRHC 17:04
PROVIDERS: ATTEND Family Medicine
DX: D50.0 Iron deficiency anemia secondary to blood loss (chronic) (principal)
CPT/HCPCS: 85025

== ENCOUNTER 2017-02-10 15:09 | Outpatient (CLI) | payer OTHER ==
[2017-02-10 15:16] LABS: BASOPHILS % 0.9 (0.0-1.5); EOSINOPHILS % 13.1 % (0.0-6.8); LYMPHOCYTES # 1.1 # k/uL (0.6-4.0); MEAN CORPUSCULAR HEMOGLOBIN 30.7 pg (28.0-34.0); MONOCYTES # 0.4 # k/uL (0.0-0.9); MONOCYTES % 6.1 % (0.0-11.0); NEUTROPHILS # 3.7 # k/uL (1.4-7.7)
== END 2017-02-10 15:10 ==
LOC: LABRHC 15:09
PROVIDERS: ATTEND Family Medicine
DX: D64.9 Anemia, unspecified (principal)
CPT/HCPCS: 85025

== ENCOUNTER 2017-03-07 14:07 | Outpatient (CLI) | payer OTHER ==
[2017-03-07 14:14] LABS: BASOPHILS % 0.8 (0.0-1.5); EOSINOPHILS % 19.7 % (0.0-6.8); MEAN CORPUSCULAR HEMOGLOBIN 30.4 pg (28.0-34.0); MEAN CORPUSCULAR VOLUME 98.6 fl (80.0-100.0); MONOCYTES % 6.5 % (0.0-11.0); NEUTROPHILS # 3.2 # k/uL (1.4-7.7)
[2017-03-07 14:39] LABS: eGFR (African) 54; eGFR (Non-African) 45
== END 2017-03-07 14:08 ==
LOC: LABRHC 14:07
PROVIDERS: ATTEND Family Medicine
DX: I10 Essential (primary) hypertension (principal)
CPT/HCPCS: 80048; 85025

== ENCOUNTER 2017-03-21 16:37 | Outpatient (CLI) | payer OTHER ==
[2017-03-21 16:41] LABS: BASOPHILS % 0.6 (0.0-1.5); EOSINOPHILS % 16.5 % (0.0-6.8); MEAN CORPUSCULAR HEMOGLOBIN 30.9 pg (28.0-34.0); MEAN CORPUSCULAR VOLUME 98.6 fl (80.0-100.0); MONOCYTES % 5.9 % (0.0-11.0); NEUTROPHILS # 4.5 # k/uL (1.4-7.7)
== END 2017-03-21 16:40 ==
LOC: LABRHC 16:37
PROVIDERS: ATTEND Family Medicine
DX: D50.0 Iron deficiency anemia secondary to blood loss (chronic) (principal)
CPT/HCPCS: 85025

== ENCOUNTER 2017-03-28 13:12 | Outpatient (CLI) | payer OTHER ==
[2017-03-28 13:31] LABS: BASOPHILS % 0.6 (0.0-1.5); EOSINOPHILS % 17.1 % (0.0-6.8); MEAN CORPUSCULAR HEMOGLOBIN 31.3 pg (28.0-34.0); MONOCYTES % 6.2 % (0.0-11.0); NEUTROPHILS # 3.9 # k/uL (1.4-7.7)
== END 2017-03-28 13:13 ==
LOC: LAB 13:12
PROVIDERS: ATTEND Family Medicine
DX: D50.9 Iron deficiency anemia, unspecified (principal)
CPT/HCPCS: 36415; 85025

== ENCOUNTER 2017-04-01 08:55 | Outpatient (CLI) | payer OTHER ==
[2017-04-01] MEDS ORDERED: SALINE FLUSH 10 ML DISP.SYRIN IVF ONE (09:33)
[2017-04-01] MEDS ORDERED: 0.9 % SODIUM CHLORIDE 250 ML IV ONE (09:42)
[2017-04-01] MEDS ORDERED: IPRATROPIUM/ALBUTEROL SULFATE 3 ML AMPUL.NEB NEB ONE (12:45)
[2017-04-01] MEDS: IPRATROPIUM/ALBUTEROL SULFATE 3 ML AMPUL.NEB NEB PRN ×2 (12:48→18:03)
[2017-04-01] MEDS ORDERED: FUROSEMIDE 20 MG/2 ML VIAL ONE (19:17)
== END 2017-04-01 20:00 | disposition home or self-care (01) ==
LOC: OUT 08:55
PROVIDERS: ATTEND Family Medicine
DX: D50.9 Iron deficiency anemia, unspecified (principal)
CPT/HCPCS: 36415; 86885; 86900; 86901; 86920; 94640; 94760; J1940; J7050; 36430; P9040

== ENCOUNTER 2017-04-01 13:22 | Outpatient (CLI) | payer OTHER ==
[2017-04-01] MEDS ORDERED: IPRATROPIUM/ALBUTEROL SULFATE 3 ML AMPUL.NEB NEB ONE (18:01)
== END 2017-04-01 13:23 ==
LOC: CARD 13:22
PROVIDERS: ATTEND Internal Medicine Cardiovascular Disease
DX: I50.9 Heart failure, unspecified (principal); I48.91 Unspecified atrial fibrillation; F17.210 Nicotine dependence, cigarettes, uncomplicated; I10 Essential (primary) hypertension; E78.5 Hyperlipidemia, unspecified
CPT/HCPCS: 93005; G0463

== ENCOUNTER 2017-06-18 17:14 | Outpatient (CLI) | payer OTHER ==
[2017-06-18 17:22] LABS: BASOPHILS % 0.6 (0.0-1.5); EOSINOPHILS % 11.5 % (0.0-6.8); MEAN CORPUSCULAR HEMOGLOBIN 32.1 pg (28.0-34.0); MEAN CORPUSCULAR VOLUME 104.3 fl (80.0-100.0); MONOCYTES % 7.3 % (0.0-11.0); NEUTROPHILS # 3.5 # k/uL (1.4-7.7)
[2017-06-18 17:32] LABS: eGFR (African) 50; eGFR (Non-African) 42
== END 2017-06-18 17:15 ==
LOC: LABRHC 17:14
PROVIDERS: ATTEND Family Medicine
DX: D50.0 Iron deficiency anemia secondary to blood loss (chronic) (principal); I10 Essential (primary) hypertension; I50.22 Chronic systolic (congestive) heart failure
CPT/HCPCS: 80048; 85025

== ENCOUNTER 2017-06-22 04:15 | Inpatient (IN) | payer OTHER ==
[2017-06-22] MEDS ORDERED: IPRATROPIUM/ALBUTEROL SULFATE 3 ML AMPUL.NEB NEB ONE (04:35)
[2017-06-22] MEDS ORDERED: FUROSEMIDE 40 MG/4 ML VIAL IVP ONE (04:35)
--- NOTE | 2017-06-22 04:49 | ED Physician Documentation ---
Dyspnea - HISTORIAN Historian: other - HPI Chief Complaint: Dyspnea Duration: continues in ED Severity: severe Associated Symptoms: denies: chills, fever Further Comments: yes (Patient was picked up by the paramedics complaining of SOB. Patient has chronic COPD, CHF, A fi (on anticoagulation), HTN. Spouse told paramedica that he had been fairly stable and that this evening he started to complain of increasing SOB. No known fever or chills noted. During transport to the ED patient was given HFN of duoned. Just prior to arrival patient went unresponsive and dropped his O2 sats into the 40-50s. Patient was bagged for a short period of time and his sats came back up.) - ROS CONST: other (unknown) - PAST HX Lung Disease: COPD Cardiac Disease: CHF, A-Fib PE Risk Factors: hypertension Surgeries/Procedures: appendectomy, other (cataract extraction, hemorrhoidectomy ) Other History: other (Fe def anemia) Immunizations: influenza, pneumovax Allergies/Adverse Reactions: Allergies Allergy/AdvReac Type Severity Reaction Status Date / Time levofloxacin Allergy Intermediate bleeding Verified 06/22/17 05:02 trazodone Allergy Mild Nausea/Vomi Verified 06/22/17 05:02 ting Sulfa (Sulfonamide Allergy Verified 06/22/17 05:02 Antibiotics) [Sulfa(Sulfonamide Antibiotics)] Home Medications: Ambulatory Orders Medication Instructions Recorded Oxygen 3 lt NS SEE.INSTRUCTIONS 07/06/13 Potassium Chloride [Klor-Con M10] 10 meq PO D 05/29/14 Diclofenac Sodium [Voltaren] 75 mg PO BID 10/22/15 Warfarin Sodium [Warfarin Sodium] 2.5 mg PO M1800 01/16/17 Warfarin Sodium [Warfarin Sodium] 5 mg PO [id number] 01/16/17 - SOCIAL HX Smoking History: greater than 1 pack/day (1 ppd) Alcohol Use: none Drug Use: none - FAMILY HX Family History: no significant history - VITAL SIGNS Vital Signs: Vital Signs Temp Pulse Resp BP Pulse Ox 145/48 01/18/17 14:00 - REVIEWED ASSESSMENTS Nursing Assessment Reviewed: Yes Vitals Reviewed: Yes Progress - EKG/XRAY/CT Comments: flipped t wavesinferior leads, Poor r wave progression in ant leads. ED Results Lab/Radiology - Radiology Radiology Impressions: Chest - one-view Clinical history: Dyspnea. Findings: Examination of the chest in PA and lateral views with comparison to examination of 01/16/2017 demonstrates pulmonary vascular congestion with perivascular and peribronchial cuffing. Cardiac silhouette is enlarged and the aorta is atherosclerotic. Monitor leads superimpose the chest. There are small effusions blunting the costophrenic angles. Impression: 1. Congestive heart failure. 2. Cardiomegaly and aortic atherosclerosis. - Orders Orders: ED Orders Category Date Time Status CHEST 1 VIEW [RAD] Routine Exams 06/22/17 Ordered ARTERIAL BLOOD GAS Stat Lab 06/22/17 Uncollected CBC/PLATELET/DIFF Routine Lab 06/22/17 Ordered CMP Routine Lab 06/22/17 Ordered D DIMER Routine Lab 06/22/17 Ordered NT-proBNP Routine Lab 06/22/17 Ordered TROPONIN I (cTnI) Routine Lab 06/22/17 Ordered Furosemide [Lasix] Med 06/22/17 04:35 Once 40 mg IVP NOW ONE Ipratropium/Albuterol Sulfate [Duoneb] Med 06/22/17 04:35 Once 3 ml NEB NOW ONE EKG WITH COMPARISON Routine Ther 06/22/17 04:37 Ordered Dyspnea Physical Exam - EXAM General Appearance: lethargic (not responding well) Neck: nml inspection Respiratory: respiratory distress, respiratory failure, decreased air movement ( all lungs, ), wheezes. No: speaks full sentences CVS: pulses equal, irregularly irreg. rhythm Abdomen: non-tender, no organomegaly, no distention Skin: color nml, no rash Extremities: edema (2-3plus bilateral) Neuro/Psych: CN's nml as tested, cognition abnml Discharge Clincal Impression: CHF (congestive heart failure), Respiratory failure, Hyperkalemia Referrals: Lance Ramirez MD [Primary Care Provider] - 2 Days Home Medications: Ambulatory Orders Oxygen 3 lt NS SEE.INSTRUCTIONS 07/06/13 Potassium Chloride [Klor-Con M10] 10 meq PO D 05/29/14 Diclofenac Sodium [Voltaren] 75 mg PO BID 10/22/15 Warfarin Sodium [Warfarin Sodium] 2.5 mg PO M1800 01/16/17 Warfarin Sodium [Warfarin Sodium] 5 mg PO [id number] 01/16/17 Condition: Poor Decision to Admit: [id number] Date of Decison to Admit: 06/22/17 Decision Time: 05:14
[2017-06-22 04:59] LABS: BASOPHILS % 0.7 (0.0-1.5); EOSINOPHILS % 10.1 % (0.0-6.8); MEAN CORPUSCULAR HEMOGLOBIN 32.8 pg (28.0-34.0); MEAN CORPUSCULAR VOLUME 107.5 fl (80.0-100.0); MONOCYTES % 6.4 % (0.0-11.0); NEUTROPHILS # 4.3 # k/uL (1.4-7.7)
[2017-06-22 05:19] LABS: eGFR (African) 50; eGFR (Non-African) 42
[2017-06-22 05:29] LABS: HYPOCHROMASIA 1+ (NEGATIVE)
[2017-06-22 06:10] LABS: APPEARANCE,URINE CLEAR (CLEAR); COLOR,URINE YELLOW (YELLOW); OCCULT BLOOD,URINE TRACE-LYSED (NEGATIVE); PH URINE 5.5 (5.0 - 8.0)
[2017-06-22 06:11] LABS: UROBILINOGEN URINE 0.2 Eu (0.2-1.0)
--- NOTE | 2017-06-22 06:25 | Diagnostic Imaging Report ---
LIZBETH ROCA [facility] [id number] [facility].[address] [address] Report Submission Date: Jun 22, 2017 5:07:02 AM CDT Patient Study Name: ARMOND DAVIS Date: Jun 22, 2017 4:39:11 AM CDT Modality Type: CR Gender: M Description: CHEST : 38 Institution: [facility] Physician: LIZBETH ROCA Chest - one-view Clinical history: Dyspnea. Findings: Examination of the chest in PA and lateral views with comparison to examination of 01/16/2017 demonstrates pulmonary vascular congestion with perivascular and peribronchial cuffing. Cardiac silhouette is enlarged and the aorta is atherosclerotic. Monitor leads superimpose the chest. There are small effusions blunting the costophrenic angles. Impression: 1. Congestive heart failure. 2. Cardiomegaly and aortic atherosclerosis. Electronically signed on Jun 22, 2017 5:07:02 AM CDT by: Can PACHECO
[2017-06-22] MEDS: FUROSEMIDE 40 MG/4 ML VIAL IVP SCH ×2 (06:35→14:32)
[2017-06-22 06:41] VITALS: BMI 24.4
[2017-06-22] MEDS ORDERED: CARVEDILOL 12.5 MG TABLET PO ONE (06:50)
[2017-06-22] MEDS: IPRATROPIUM/ALBUTEROL SULFATE 3 ML AMPUL.NEB NEB SCH ×4 (08:51→21:30)
[2017-06-22] MEDS: BUDESONIDE 0.5MG/2ML AMPUL.NEB NEB SCH ×2 (09:02→21:05)
--- NOTE | 2017-06-22 09:04 | History and Physical Report ---
History of Present Illnes - History of Present Illness Reason for Visit: CHF, COPD History of Present Illness: This is a 77 year old male admitted with onset of shortness of breath about 0300 today. He asked to be brought to the ER, where he was noted to be in respiratory failure. He was placed on oxygen and now is on 7.5 L by NRB and his oxygen saturations are over 90%, however his is retaining CO2 with a PCO2 over 100 on his ABGs. His BNP is markedly elevated at over 6K. He is not responsive. I have spoken with his and she reaffirms, as per prevous conversations with Kian that he does not want ventilatory support. His CXR shows CHF, no infiltrates are noted. Troponin is negative. - Past Medical History Cardiac: AFIB, CHF, HTN Pulmonary: COPD [employer]: denies: CVA Gastrointestinal: Constipation Heme/Onc: Iron deficiency anemia Hepatobiliary: denies: Other Psych: Depression Musculoskeletal: denies: Other Rheumatologic: denies: Other Infectious Disease: denies: Other ENT: denies: Other - Past Surgical History Past Surgical History: Appendectomy, Cataract Removal, Other (Hemmorhoidectomy) - Past Social History Smoke: 1 pack per day Alcohol: Rare Drugs: None Lives: With Family (), Other (daughter in the local area) Domestic Violence: Negative - Health Maintenance Health Maintenance: Influenza Vaccine, Pneumococcal Vaccine Influenza Vaccine: Current for this Influenza Season Pneumonia Vaccine: Yes Resuscitation Status: Resusciation Status Resuscitation Status Full Code - Unable to Obtain History Unable to Obtain: Yes Review of Systems - Review of Systems Constitutional: negative: Other Eyes: negative: other ENT: negative: Other Respiratory: Cough, Shortness of Breath Cardiovascular: negative: Chest Pain Gastrointestinal: negative: Nausea, Vomiting Genitourinary: negative: Dysuria Musculoskeletal: negative: Neck Pain Skin: negative: Rash Neurological: Weakness, Confusion - Medications/Allergies Allergies/Adverse Reactions: Allergies Allergy/AdvReac Type Severity Reaction Status Date / Time levofloxacin Allergy Intermediate bleeding Verified 06/22/17 05:02 trazodone Allergy Mild Nausea/Vomi Verified 06/22/17 05:02 ting Sulfa (Sulfonamide Allergy Verified 06/22/17 05:02 Antibiotics) [Sulfa(Sulfonamide Antibiotics)] Current Inpatient Medications: Current Inpatient Medications Albuterol/Ipratropium (Duoneb) 3 ml NEB QID LUC Last Admin: 06/22/17 08:51 Dose: 3 ml Amlodipine Besylate (Norvasc) 10 mg PO DAILY [facility] Budesonide (Pulmicort) 0.5 mg NEB BID [facility] Carvedilol (Coreg) 25 mg PO BID [facility] Furosemide (Lasix) 40 mg IVP 714 [facility] Last Admin: 06/22/17 06:35 Dose: Not Given Lisinopril (Prinivil) 40 mg PO D LUC Simvastatin (Zocor) 10 mg PO HS LUC Warfarin Sodium (Coumadin) 2.5 mg PO M1800 [facility] Warfarin Sodium (Coumadin) 5 mg PO [id number] [facility] Exam - Exam Vital Signs: Vital Signs (72 hours) 06/22/17 06/22/17 06/22/17 06:02 06:36 08:28 Temperature 97.6 F 97.6 F 96.3 F L Pulse Rate [ 74 74 71 Pulse ox] Respiratory 22 22 20 Rate Blood Pressure 141/56 141/56 [Left Arm] Blood Pressure 131/51 [Right Arm] O2 Sat by Pulse 97 97 100 Oximetry General: Discheveled. No: Alert, Oriented to Person HEENT: Atraumatic, PERRLA Neck: No: Stridor Lungs: Wheezes, Prolonged Expiration, Decreased Air Movement Cardiovascular: Irregularly Irregular Murmur: Systolic Murmur Murmur Location: Left Sternal Boarder Heart Murmur Grade: II Abdomen: Normal bowel sounds, Soft. No: No tenderness Genitourinary: No: Other Male Genitourinary: No: Other Female Genitourinary: No: Other Integumentary: Pale Extremities: Other (2+ edema BLE) Neurological: No: Normal gait, Normal speech Psych/Mental Status: No: Mental status NL - Laboratory Results Laboratory Results: CXR shows failure and marked cardiomegaly. No infiltrates are noted. Troponins are noted ABG shows CO2 retention, P02 is 153, pulse oximetry is 99% HgB is 7.6 (stable) Assessment/Plan - Assessment/Plan (1) CHF (congestive heart failure) Status: Acute Current Visit: Yes Assessment: Will start careful diuresis Monitor blood pressure (2) Respiratory failure Status: Acute Current Visit: Yes Assessment: Currently on 6LNC Continue nebulizer treatments Will keep with his wishes not to start ventilatory support. (3) Anemia Status: Acute Current Visit: No Qualifiers: Anemia type: other cause Other causes of anemia: acute posthemorrhagic Qualified Code(s): D62 - Acute posthemorrhagic anemia Assessment: Once CHF is improved will consider transfusion (he is already on for Friday) (4) COPD (chronic obstructive pulmonary disease) Status: Acute Current Visit: No Qualifiers: COPD type: COPD with acute exacerbation Qualified Code(s): J44.1 - Chronic obstructive pulmonary disease with (acute) exacerbation Assessment: nebulizer treamtments (5) Hypercapnic respiratory failure Status: Acute Current Visit: No Qualifiers: Chronicity: acute on chronic Qualified Code(s): J96.22 - Acute and chronic respiratory failure with hypercapnia VTE Assessment - RISK FACTOR SCORE VTE RISK FACTOR SCORES: AGE OVER 60 YEARS - RISK VTE MODERATE RISK: SCORE OF 2 (RISK PROXIMAL DVT 2-4%) PROPHYAXIS NEEDED ( Already anticoagulated)
[2017-06-22] MEDS: CARVEDILOL 25 MG TABLET PO SCH ×2 (12:39→20:08)
[2017-06-22] MEDS: amLODIPine BESYLATE 5 MG TABLET PO SCH (12:40)
[2017-06-22] MEDS: LISINOPRIL 20 MG TABLET PO SCH (12:40)
[2017-06-22] MEDS ORDERED: SALINE FLUSH 10 ML DISP.SYRIN IVF ONE (14:28)
[2017-06-22] MEDS ORDERED: WARFARIN SODIUM 5 MG TABLET PO ONE (16:40)
[2017-06-22] MEDS ORDERED: WARFARIN SODIUM 5 MG TABLET PO SCH (18:00)
[2017-06-22] MEDS ORDERED: WARFARIN SODIUM 1 MG TABLET PO SCH (18:00)
[2017-06-22] MEDS ORDERED: WARFARIN SODIUM 1 MG TABLET PO ONE (18:23)
[2017-06-22] MEDS: SIMVASTATIN 20 MG TABLET PO SCH (20:08)
[2017-06-23] MEDS ORDERED: WARFARIN SODIUM 1 MG TABLET PO ONE (04:28)
[2017-06-23] MEDS ORDERED: CARVEDILOL 12.5 MG TABLET PO ONE (04:28)
[2017-06-23 07:24] LABS: ABG BASE EXCESS 10.6 (-2 - +2); ABG PH 7.21 (7.35-7.45)
[2017-06-23] MEDS: IPRATROPIUM/ALBUTEROL SULFATE 3 ML AMPUL.NEB NEB SCH ×4 (08:30→21:20)
[2017-06-23] MEDS: BUDESONIDE 0.5MG/2ML AMPUL.NEB NEB SCH ×2 (08:32→21:55)
[2017-06-23] MEDS: amLODIPine BESYLATE 5 MG TABLET PO SCH (09:03)
[2017-06-23] MEDS: LISINOPRIL 20 MG TABLET PO SCH (09:04)
[2017-06-23] MEDS: CARVEDILOL 12.5 MG TABLET PO SCH ×2 (09:05→20:54)
--- NOTE | 2017-06-23 10:45 | Inpatient Progress Note ---
Subjective - Required Recertification Statement I anticipate X number of days because-include discharge plan: 3 - Review of Systems Events since last encounter: Kian has improved markedly since admission. He is alert and oriented, but remains very dyspneic. He has not had any chest pain. He has a huff catheter in this morning, which we will remove today. He is currently being typed and screened for transfusion of 1 unit of packed red blood cells. Depending on his response and as long as he does not decompensate, may give another unit of packed red blood cells tomorrow. General: Fatigue, Malaise. Denies: Chills, Night Sweats HEENT: Denies: Head Aches, Visual Changes Pulmonary: Dyspnea, Cough. Denies: Pleuritic Chest Pain Cardiovascular: Denies: Chest Pain, Palpitations Gastrointestinal: Denies: Nausea, Vomiting Genitourinary: Denies: Dysuria Musculoskeletal: Denies: Neck Pain, Shoulder Pain, Arm Pain Neurological: Weakness. Denies: Change in Speech, Confusion Objective - Exam Vitals and I&O: Vital Signs Temp 98.6 F 06/23/17 08:14 Pulse 73 06/23/17 08:14 Resp 24 06/23/17 08:14 BP 141/57 06/23/17 08:14 Pulse Ox 93 06/23/17 08:14 Intake & Output 06/22/17 06/22/17 06/23/17 11:59 23:59 11:59 Intake Total 0 0 360 Output Total 400 100 600 Balance -400 -100 -240 Weight 81.647 kg Intake: Oral 0 0 360 Output: Urine 400 100 600 Other: Voiding Method Indwelling Catheter Indwelling Catheter # Bowel Movements 0 General: Alert, Oriented to Person, Oriented to Place, Moderate distress ( respiratory) HEENT: Atraumatic, PERRLA, EOMI, Poor Dentition Neck: Supple Lungs: Respiratory Distress, Wheezes, Prolonged Expiration, Decreased Air Movement Cardiovascular: Irregularly Irregular Abdomen: Normal bowel sounds, Soft Extremities: No edema Skin: Pale Neurological: Normal speech Psych/Mental Status: Mental status NL - Results Results: Laboratory Results WBC 9.40 K/ul (4.00-12.00) 06/22/17 04:55 RBC 2.33 M/ul (3.90-5.20) L 06/22/17 04:55 Hgb 7.6 g/dL (12.0-18.0) L 06/22/17 04:55 Hct 25.1 % (37.0-53.0) L 06/22/17 04:55 MCV 107.5 fl (80.0-100.0) H 06/22/17 04:55 MCH 32.8 pg (28.0-34.0) 06/22/17 04:55 MCHC 30.5 g/dL (30.0-36.0) 06/22/17 04:55 RDW 14.9 % (11.3-14.3) H 06/22/17 04:55 Plt Count 200 K/mm3 (130-400) 06/22/17 04:55 Neut % (Auto) 45.5 % (39.0-79.0) 06/22/17 04:55 Lymph % (Auto) 35.8 % (16.0-50.0) 06/22/17 04:55 [place] % (Auto) 6.4 % (0.0-11.0) 06/22/17 04:55 Eos % (Auto) 10.1 % (0.0-6.8) H 06/22/17 04:55 Baso % (Auto) 0.7 (0.0-1.5) 06/22/17 04:55 Neut # (Auto) 4.3 # k/uL (1.4-7.7) 06/22/17 04:55 Lymph # (Auto) 3.4 # k/uL (0.6-4.0) 06/22/17 04:55 [place] # (Auto) 0.6 # k/uL (0.0-0.9) 06/22/17 04:55 Eos # (Auto) 1.0 # k/uL (0.0-0.6) H 06/22/17 04:55 Baso # (Auto) 0.1 # k/uL (0.0-0.5) 06/22/17 04:55 Reactive Lymphs % 1.6 % (0.0-5.0) 06/22/17 04:55 Reactive Lymphs # 0.2 # k/uL (0.0-0.8) 06/22/17 04:55 Plt Morphology Comment Normal (NORMAL) 06/22/17 04:55 Hypochromasia 1+ (NEGATIVE) H 06/22/17 04:55 Macrocytosis 1+ (NEGATIVE) H 06/22/17 04:55 RBC Morph Comment Abnormal (NORMAL) H 06/22/17 04:55 PT 25.9 Seconds (9.4-11.6) H 06/22/17 04:55 INR 2.45 (0.9-1.2) H 06/22/17 04:55 D-Dimer 685 ng/mL (6.0-682) H 06/22/17 04:55 pH 7.21 (7.35-7.45) L 06/22/17 05:25 pCO2 106 mmhg (35-45) H* 06/22/17 05:25 pO2 153 mmhg (80-100) H 06/22/17 05:25 HCO3 42.4 Meq/L (21-26) H 06/22/17 05:25 ABG O2 Sat Calc/Raymundo 99 % (93-100) 06/22/17 05:25 ABG Base Excess 10.6 (-2 - +2) H 06/22/17 05:25 Sodium 145 mmol/L (136-145) 06/22/17 04:55 Potassium 5.2 mmol/L (3.5-5.0) H 06/22/17 04:55 Chloride 103 mmol/L (98-110) 06/22/17 04:55 Carbon Dioxide > 40 mmol/L (20-32) H 06/22/17 04:55 BUN 35 mg/dL (10-26) H 06/22/17 04:55 Creatinine 1.7 mg/dL (0.4-1.5) H 06/22/17 04:55 Est GFR ( Amer) 50 (60-) L 06/22/17 04:55 Est GFR (Non-Af Amer) 42 (60-) L 06/22/17 04:55 Glucose 165 mg/dL (70-99) H 06/22/17 04:55 Calcium 10.6 mg/dL (8.5-10.5) H 06/22/17 04:55 Total Bilirubin 0.3 mg/dL (0.2-1.2) 06/22/17 04:55 AST 18 U/L (0-41) 06/22/17 04:55 ALT 14 U/L (0-45) 06/22/17 04:55 Alkaline Phosphatase 83 U/L (46-116) 06/22/17 04:55 Troponin I < 0.03 ng/mL (0.03-0.06) L 06/22/17 04:55 NT-Pro-B Natriuret Pep 6169.7 pg/mL (15.0-450.0) H 06/22/17 04:55 Total Protein 7.0 g/dL (6.0-8.5) 06/22/17 04:55 Albumin 3.9 g/dL (3.0-5.5) 06/22/17 04:55 Urine Color Yellow (YELLOW) 06/22/17 05:00 Urine Appearance Clear (CLEAR) 06/22/17 05:00 Urine pH 5.5 (5.0 - 8.0) 06/22/17 05:00 Ur Specific [place] 1.015 (1.010-1.030) 06/22/17 05:00 Urine Protein 3+ mg/dL (NEGATIVE) H 06/22/17 05:00 Urine Ketones Negative mg/dL (NEGATIVE) 06/22/17 05:00 Urine Occult Blood Trace-lysed (NEGATIVE) H 06/22/17 05:00 Urine Nitrite Negative (NEGATIVE) 06/22/17 05:00 Urine Bilirubin Negative (NEGATIVE) 06/22/17 05:00 Urine Urobilinogen 0.2 Eu (0.2-1.0) 06/22/17 05:00 Ur Leukocyte Esterase Negative (NEGATIVE) 06/22/17 05:00 Urine Glucose Negative mg/dL (NEGATIVE) 06/22/17 05:00 Assessment/Plan - Assessment/Plan (1) CHF (congestive heart failure) Status: Acute Current Visit: Yes Assessment: Continue current dose of lasix D/C Huff with improvement in mental status Plan: Have Dr Rodriguez see tomorrow (2) Respiratory failure Status: Acute Current Visit: Yes Assessment: Continue nebulizer treatments, supplemental oxygen (3) Anemia Status: Acute Current Visit: No Qualifiers: Anemia type: other cause Other causes of anemia: acute posthemorrhagic Qualified Code(s): D62 - Acute posthemorrhagic anemia Assessment: Transfuse one unit of packed red blood cells today (4) COPD (chronic obstructive pulmonary disease) Status: Acute Current Visit: No Qualifiers: COPD type: COPD with acute exacerbation Qualified Code(s): J44.1 - Chronic obstructive pulmonary disease with (acute) exacerbation (5) Hypercapnic respiratory failure Status: Acute Current Visit: No Qualifiers: Chronicity: acute on chronic Qualified Code(s): J96.22 - Acute and chronic respiratory failure with hypercapnia
[2017-06-23 10:59] LABS: MEAN CORPUSCULAR HEMOGLOBIN 32.1 pg (28.0-34.0); MEAN CORPUSCULAR VOLUME 103.5 fl (80.0-100.0)
[2017-06-23] MEDS ORDERED: SALINE FLUSH 10 ML DISP.SYRIN IVF ONE ×2 (14:07→18:20)
[2017-06-23] MEDS: FUROSEMIDE 40 MG/4 ML VIAL IVP SCH (14:21)
[2017-06-23] MEDS: WARFARIN SODIUM 1 MG TABLET PO SCH (17:48)
[2017-06-23] MEDS: ACETAMINOPHEN 325 MG TABLET PO PRN (17:51)
[2017-06-23] MEDS ORDERED: WARFARIN SODIUM 2.5 MG TABLET PO SCH (18:00)
[2017-06-23] MEDS: SIMVASTATIN 20 MG TABLET PO SCH (20:54)
[2017-06-24] MEDS ORDERED: SALINE FLUSH 10 ML DISP.SYRIN IVF ONE ×2 (06:13→14:00)
[2017-06-24 06:22] LABS: BASOPHILS % 0.5 (0.0-1.5); EOSINOPHILS % 6.8 % (0.0-6.8); MEAN CORPUSCULAR HEMOGLOBIN 31.2 pg (28.0-34.0); MEAN CORPUSCULAR VOLUME 99.1 fl (80.0-100.0); MONOCYTES % 7.5 % (0.0-11.0); NEUTROPHILS # 4.4 # k/uL (1.4-7.7)
[2017-06-24] MEDS: FUROSEMIDE 40 MG/4 ML VIAL IVP SCH ×3 (06:24→16:32)
[2017-06-24 07:04] LABS: ANISOCYTOSIS 1+ (NEGATIVE)
[2017-06-24 07:05] LABS: HYPOCHROMASIA 1+ (NEGATIVE)
[2017-06-24] MEDS: LISINOPRIL 20 MG TABLET PO SCH (08:46)
[2017-06-24] MEDS: amLODIPine BESYLATE 5 MG TABLET PO SCH (08:46)
[2017-06-24] MEDS: CARVEDILOL 12.5 MG TABLET PO SCH ×2 (08:46→19:50)
[2017-06-24] MEDS: IPRATROPIUM/ALBUTEROL SULFATE 3 ML AMPUL.NEB NEB SCH ×4 (08:53→21:33)
[2017-06-24] MEDS: BUDESONIDE 0.5MG/2ML AMPUL.NEB NEB SCH ×2 (08:54→21:34)
--- NOTE | 2017-06-24 10:31 | Inpatient Progress Note ---
Subjective - Required Recertification Statement I anticipate X number of days because-include discharge plan: 3 - Review of Systems Events since last encounter: Kian is feeling better today. He is breathing much better. His Hgb came up to 7.2 today (6.8 yesterday) and we are making arrangements to transfuse him another unit today. He continues on lasix at [address] Rodriguez will be seeing him today. He still has not been up and out of his bed much. General: Fatigue. Denies: Chills, Night Sweats HEENT: Denies: Head Aches Pulmonary: Dyspnea, Cough Cardiovascular: Denies: Chest Pain, Palpitations Gastrointestinal: Denies: Nausea Genitourinary: Denies: Dysuria, Frequency Musculoskeletal: Denies: Neck Pain Neurological: Weakness. Denies: Confusion Objective - Exam Vitals and I&O: Vital Signs Temp 98.7 F 06/24/17 06:00 Pulse 70 06/24/17 06:00 Resp 22 06/24/17 06:00 BP 153/63 06/24/17 06:00 Pulse Ox 97 06/24/17 06:00 Intake & Output 06/23/17 06/23/17 06/24/17 11:59 23:59 11:59 Intake Total 360 1040 240 Output Total 600 Balance -240 1040 240 Weight 81.647 kg Intake: Oral 360 1040 240 Output: Urine 600 Other: Voiding Method Indwelling Catheter Indwelling Catheter General: Alert, Oriented to Person, Oriented to Place, Moderate distress ( respiratory) HEENT: Atraumatic, PERRLA, EOMI Neck: Supple, Other (JVD noted) Lungs: Wheezes, Prolonged Expiration, Decreased Air Movement Cardiovascular: Irregularly Irregular Abdomen: Normal bowel sounds, Soft, No tenderness Extremities: No edema Skin: Pale Neurological: Normal speech Psych/Mental Status: Mental status NL - Results Results: Laboratory Results WBC 6.50 K/ul (4.00-12.00) 06/24/17 06:05 RBC 2.31 M/ul (3.90-5.20) L 06/24/17 06:05 Hgb 7.2 g/dL (12.0-18.0) L 06/24/17 06:05 Hct 22.9 % (37.0-53.0) L 06/24/17 06:05 MCV 99.1 fl (80.0-100.0) 06/24/17 06:05 MCH 31.2 pg (28.0-34.0) 06/24/17 06:05 MCHC 31.5 g/dL (30.0-36.0) 06/24/17 06:05 RDW 16.0 % (11.3-14.3) H 06/24/17 06:05 Plt Count 163 K/mm3 (130-400) 06/24/17 06:05 Neut % (Auto) 66.9 % (39.0-79.0) 06/24/17 06:05 Lymph % (Auto) 17.0 % (16.0-50.0) 06/24/17 06:05 [place] % (Auto) 7.5 % (0.0-11.0) 06/24/17 06:05 Eos % (Auto) 6.8 % (0.0-6.8) 06/24/17 06:05 Baso % (Auto) 0.5 (0.0-1.5) 06/24/17 06:05 Neut # (Auto) 4.4 # k/uL (1.4-7.7) 06/24/17 06:05 Lymph # (Auto) 1.1 # k/uL (0.6-4.0) 06/24/17 06:05 [place] # (Auto) 0.5 # k/uL (0.0-0.9) 06/24/17 06:05 Eos # (Auto) 0.4 # k/uL (0.0-0.6) 06/24/17 06:05 Baso # (Auto) 0.0 # k/uL (0.0-0.5) 06/24/17 06:05 Reactive Lymphs % 1.3 % (0.0-5.0) 06/24/17 06:05 Reactive Lymphs # 0.1 # k/uL (0.0-0.8) 06/24/17 06:05 Plt Morphology Comment Normal (NORMAL) 06/24/17 06:05 Hypochromasia 1+ (NEGATIVE) H 06/24/17 06:05 Anisocytosis 1+ (NEGATIVE) H 06/24/17 06:05 Macrocytosis 1+ (NEGATIVE) H 06/22/17 04:55 RBC Morph Comment Abnormal (NORMAL) H 06/24/17 06:05 PT 25.9 Seconds (9.4-11.6) H 06/22/17 04:55 INR 2.45 (0.9-1.2) H 06/22/17 04:55 D-Dimer 685 ng/mL (6.0-682) H 06/22/17 04:55 pH 7.21 (7.35-7.45) L 06/22/17 05:25 pCO2 106 mmhg (35-45) H* 06/22/17 05:25 pO2 153 mmhg (80-100) H 06/22/17 05:25 HCO3 42.4 Meq/L (21-26) H 06/22/17 05:25 ABG O2 Sat Calc/Raymundo 99 % (93-100) 06/22/17 05:25 ABG Base Excess 10.6 (-2 - +2) H 06/22/17 05:25 Sodium 139 mmol/L (136-145) 06/23/17 10:45 Potassium 4.6 mmol/L (3.5-5.0) 06/23/17 10:45 Chloride 99 mmol/L (98-110) 06/23/17 10:45 Carbon Dioxide 36 mmol/L (20-32) H 06/23/17 10:45 BUN 43 mg/dL (10-26) H 06/23/17 10:45 Creatinine 1.7 mg/dL (0.4-1.5) H 06/23/17 10:45 Estimated Creat Clear 41 06/23/17 10:45 Est GFR ( Amer) 50 (60-) L 06/23/17 10:45 Est GFR (Non-Af Amer) 42 (60-) L 06/23/17 10:45 Glucose 161 mg/dL (70-99) H 06/23/17 10:45 Calcium 9.7 mg/dL (8.5-10.5) 06/23/17 10:45 Total Bilirubin 0.3 mg/dL (0.2-1.2) 06/23/17 10:45 AST 16 U/L (0-41) 06/23/17 10:45 ALT 11 U/L (0-45) 06/23/17 10:45 Alkaline Phosphatase 67 U/L (46-116) 06/23/17 10:45 Troponin I < 0.03 ng/mL (0.03-0.06) L 06/22/17 04:55 NT-Pro-B Natriuret Pep 6169.7 pg/mL (15.0-450.0) H 06/22/17 04:55 Total Protein 5.7 g/dL (6.0-8.5) L 06/23/17 10:45 Albumin 3.3 g/dL (3.0-5.5) 06/23/17 10:45 Urine Color Yellow (YELLOW) 06/22/17 05:00 Urine Appearance Clear (CLEAR) 06/22/17 05:00 Urine pH 5.5 (5.0 - 8.0) 06/22/17 05:00 Ur Specific [place] 1.015 (1.010-1.030) 06/22/17 05:00 Urine Protein 3+ mg/dL (NEGATIVE) H 06/22/17 05:00 Urine Ketones Negative mg/dL (NEGATIVE) 06/22/17 05:00 Urine Occult Blood Trace-lysed (NEGATIVE) H 06/22/17 05:00 Urine Nitrite Negative (NEGATIVE) 06/22/17 05:00 Urine Bilirubin Negative (NEGATIVE) 06/22/17 05:00 Urine Urobilinogen 0.2 Eu (0.2-1.0) 06/22/17 05:00 Ur Leukocyte Esterase Negative (NEGATIVE) 06/22/17 05:00 Urine Glucose Negative mg/dL (NEGATIVE) 06/22/17 05:00 Assessment/Plan - Assessment/Plan (1) CHF (congestive heart failure) Status: Acute Current Visit: Yes Assessment: Continue current dose of lasix/cardiac meds Cardiology consult today (2) Respiratory failure Status: Acute Current Visit: Yes Assessment: Improved (3) Anemia Status: Acute Current Visit: No Qualifiers: Anemia type: other cause Other causes of anemia: acute posthemorrhagic Qualified Code(s): D62 - Acute posthemorrhagic anemia Assessment: Chronic Plan: Transfuse another unit of packed red blood cells today (4) COPD (chronic obstructive pulmonary disease) Status: Acute Current Visit: No Qualifiers: COPD type: COPD with acute exacerbation Qualified Code(s): J44.1 - Chronic obstructive pulmonary disease with (acute) exacerbation Assessment: Chronic with continued smoking Plan: Continue nebulizers/supplemental O2 (5) Hypercapnic respiratory failure Status: Acute Current Visit: No Qualifiers: Chronicity: acute on chronic Qualified Code(s): J96.22 - Acute and chronic respiratory failure with hypercapnia Assessment: improved
[2017-06-24] MEDS: ACETAMINOPHEN 325 MG TABLET PO PRN (15:21)
[2017-06-24] MEDS ORDERED: 0.9 % SODIUM CHLORIDE 100 ML IV ONE (15:30)
[2017-06-24] MEDS: WARFARIN SODIUM 1 MG TABLET PO SCH (18:31)
[2017-06-24] MEDS: SIMVASTATIN 20 MG TABLET PO SCH (19:49)
[2017-06-25] MEDS: IPRATROPIUM/ALBUTEROL SULFATE 3 ML AMPUL.NEB NEB SCH ×3 (04:33→15:47)
[2017-06-25] MEDS: FUROSEMIDE 40 MG/4 ML VIAL IVP SCH ×2 (06:17→15:42)
--- NOTE | 2017-06-25 08:31 | Inpatient Progress Note ---
Subjective - Required Recertification Statement I anticipate X number of days because-include discharge plan: 2 - Review of Systems Events since last encounter: Kian is feeling progressively better every day. He has still not gotten out of bed much. He had another transfusion yesterday and his CBC is pending this morning. I have held his potassium due to him being hyperkalemic on admission. I am checking this again today. We will check with his insurance to see if we can skill him today. I will also remove his huff catheter today. General: Denies: Chills, Night Sweats HEENT: Denies: Head Aches Pulmonary: Dyspnea, Cough Cardiovascular: Orthopnea. Denies: Chest Pain, Palpitations Gastrointestinal: Denies: Nausea, Vomiting Genitourinary: Denies: Dysuria Neurological: Weakness. Denies: Confusion Objective - Exam Vitals and I&O: Vital Signs Temp 98.0 F 06/25/17 06:00 Pulse 81 06/25/17 06:00 Resp 18 06/25/17 06:00 BP 159/69 06/25/17 06:00 Pulse Ox 98 06/25/17 06:00 Intake & Output 06/24/17 06/24/17 06/25/17 11:59 23:59 11:59 Intake Total 460 1480 Output Total 1375 1000 Balance 460 105 -1000 Intake: IV 320 Left Forearm 320 Oral 460 1160 Output: Urine 1375 1000 Other: Voiding Method Indwelling Catheter Indwelling Catheter General: Alert, Oriented to Person, Oriented to Place, Oriented to Time HEENT: Atraumatic, PERRLA Neck: Supple Lungs: Prolonged Expiration, Decreased Air Movement Cardiovascular: Irregularly Irregular Abdomen: Normal bowel sounds, Soft. No: No tenderness Extremities: No clubbing, No cyanosis, No edema Skin: Pale Neurological: Normal speech, Strength Equal Bilat Psych/Mental Status: Mental status NL - Results Results: Laboratory Results WBC 6.50 K/ul (4.00-12.00) 06/24/17 06:05 RBC 2.31 M/ul (3.90-5.20) L 06/24/17 06:05 Hgb 7.2 g/dL (12.0-18.0) L 06/24/17 06:05 Hct 22.9 % (37.0-53.0) L 06/24/17 06:05 MCV 99.1 fl (80.0-100.0) 06/24/17 06:05 MCH 31.2 pg (28.0-34.0) 06/24/17 06:05 MCHC 31.5 g/dL (30.0-36.0) 06/24/17 06:05 RDW 16.0 % (11.3-14.3) H 06/24/17 06:05 Plt Count 163 K/mm3 (130-400) 06/24/17 06:05 Neut % (Auto) 66.9 % (39.0-79.0) 06/24/17 06:05 Lymph % (Auto) 17.0 % (16.0-50.0) 06/24/17 06:05 [place] % (Auto) 7.5 % (0.0-11.0) 06/24/17 06:05 Eos % (Auto) 6.8 % (0.0-6.8) 06/24/17 06:05 Baso % (Auto) 0.5 (0.0-1.5) 06/24/17 06:05 Neut # (Auto) 4.4 # k/uL (1.4-7.7) 06/24/17 06:05 Lymph # (Auto) 1.1 # k/uL (0.6-4.0) 06/24/17 06:05 [place] # (Auto) 0.5 # k/uL (0.0-0.9) 06/24/17 06:05 Eos # (Auto) 0.4 # k/uL (0.0-0.6) 06/24/17 06:05 Baso # (Auto) 0.0 # k/uL (0.0-0.5) 06/24/17 06:05 Reactive Lymphs % 1.3 % (0.0-5.0) 06/24/17 06:05 Reactive Lymphs # 0.1 # k/uL (0.0-0.8) 06/24/17 06:05 Plt Morphology Comment Normal (NORMAL) 06/24/17 06:05 Hypochromasia 1+ (NEGATIVE) H 06/24/17 06:05 Anisocytosis 1+ (NEGATIVE) H 06/24/17 06:05 Macrocytosis 1+ (NEGATIVE) H 06/22/17 04:55 RBC Morph Comment Abnormal (NORMAL) H 06/24/17 06:05 PT 25.9 Seconds (9.4-11.6) H 06/22/17 04:55 INR 2.45 (0.9-1.2) H 06/22/17 04:55 D-Dimer 685 ng/mL (6.0-682) H 06/22/17 04:55 pH 7.21 (7.35-7.45) L 06/22/17 05:25 pCO2 106 mmhg (35-45) H* 06/22/17 05:25 pO2 153 mmhg (80-100) H 06/22/17 05:25 HCO3 42.4 Meq/L (21-26) H 06/22/17 05:25 ABG O2 Sat Calc/Raym[place] 99 % (93-100) 06/22/17 05:25 ABG Base Excess 10.6 (-2 - +2) H 06/22/17 05:25 Sodium 139 mmol/L (136-145) 06/23/17 10:45 Potassium 4.6 mmol/L (3.5-5.0) 06/23/17 10:45 Chloride 99 mmol/L (98-110) 06/23/17 10:45 Carbon Dioxide 36 mmol/L (20-32) H 06/23/17 10:45 BUN 43 mg/dL (10-26) H 06/23/17 10:45 Creatinine 1.7 mg/dL (0.4-1.5) H 06/23/17 10:45 Estimated Creat Clear 41 06/23/17 10:45 Est GFR ( Amer) 50 (60-) L 06/23/17 10:45 Est GFR (Non-Af Amer) 42 (60-) L 06/23/17 10:45 Glucose 161 mg/dL (70-99) H 06/23/17 10:45 Calcium 9.7 mg/dL (8.5-10.5) 06/23/17 10:45 Total Bilirubin 0.3 mg/dL (0.2-1.2) 06/23/17 10:45 AST 16 U/L (0-41) 06/23/17 10:45 ALT 11 U/L (0-45) 06/23/17 10:45 Alkaline Phosphatase 67 U/L (46-116) 06/23/17 10:45 Troponin I < 0.03 ng/mL (0.03-0.06) L 06/22/17 04:55 NT-Pro-B Natriuret Pep 6169.7 pg/mL (15.0-450.0) H 06/22/17 04:55 Total Protein 5.7 g/dL (6.0-8.5) L 06/23/17 10:45 Albumin 3.3 g/dL (3.0-5.5) 06/23/17 10:45 Urine Color Yellow (YELLOW) 06/22/17 05:00 Urine Appearance Clear (CLEAR) 06/22/17 05:00 Urine pH 5.5 (5.0 - 8.0) 06/22/17 05:00 Ur Specific [place] 1.015 (1.010-1.030) 06/22/17 05:00 Urine Protein 3+ mg/dL (NEGATIVE) H 06/22/17 05:00 Urine Ketones Negative mg/dL (NEGATIVE) 06/22/17 05:00 Urine Occult Blood Trace-lysed (NEGATIVE) H 06/22/17 05:00 Urine Nitrite Negative (NEGATIVE) 06/22/17 05:00 Urine Bilirubin Negative (NEGATIVE) 06/22/17 05:00 Urine Urobilinogen 0.2 Eu (0.2-1.0) 06/22/17 05:00 Ur Leukocyte Esterase Negative (NEGATIVE) 06/22/17 05:00 Urine Glucose Negative mg/dL (NEGATIVE) 06/22/17 05:00 Stool Guaiac Test Negative (NEGATIVE) 06/24/17 13:30 Assessment/Plan - Assessment/Plan (1) CHF (congestive heart failure) Status: Acute Current Visit: Yes Assessment: Continue lasix/carvedilol (2) Respiratory failure Status: Acute Current Visit: Yes Assessment: Continue nebulizer treatments/supplemental O2 (3) Anemia Status: Acute Current Visit: No Qualifiers: Anemia type: other cause Other causes of anemia: acute posthemorrhagic Qualified Code(s): D62 - Acute posthemorrhagic anemia Assessment: Check CBC (4) COPD (chronic obstructive pulmonary disease) Status: Acute Current Visit: No Qualifiers: COPD type: COPD with acute exacerbation Qualified Code(s): J44.1 - Chronic obstructive pulmonary disease with (acute) exacerbation Assessment: Continue nebulizer treatments/O2/encourage smoking cessation (5) Hypercapnic respiratory failure Status: Acute Current Visit: No Qualifiers: Chronicity: acute on chronic Qualified Code(s): J96.22 - Acute and chronic respiratory failure with hypercapnia
[2017-06-25] MEDS: CARVEDILOL 12.5 MG TABLET PO SCH (08:35)
[2017-06-25] MEDS: amLODIPine BESYLATE 5 MG TABLET PO SCH (08:35)
[2017-06-25] MEDS: LISINOPRIL 20 MG TABLET PO SCH (08:36)
[2017-06-25 09:18] LABS: MEAN CORPUSCULAR HEMOGLOBIN 30.6 pg (28.0-34.0)
[2017-06-25 09:19] LABS: BASOPHILS % 0.5 (0.0-1.5); EOSINOPHILS % 6.8 % (0.0-6.8); MEAN CORPUSCULAR VOLUME 97.6 fl (80.0-100.0); MONOCYTES % 7.4 % (0.0-11.0); NEUTROPHILS # 4.7 # k/uL (1.4-7.7)
[2017-06-25 09:36] LABS: eGFR (African) > 60; eGFR (Non-African) 52
[2017-06-25 13:51] VITALS: BP 156/50
--- NOTE | 2017-06-26 15:56 | Discharge Summary ---
DATE OF ADMISSION: June 22, 2017 DATE OF DISCHARGE: June 25, 2017 DISCHARGE DIAGNOSES: 1. Hypercapnic respiratory failure. 2. Atrial fibrillation. 3. Congestive heart failure. 4. Anemia secondary to GI blood loss. 5. Anticoagulant therapy. SUMMARIZATION OF ADMISSION HISTORY AND PHYSICAL: This is a 77-year-old male well known to myself who presented on the day of admission essentially obtunded due to respiratory failure. He was noted to be markedly hypercapnic with a pCO2 of over 100. In keeping with his wishes, we did not do any ventilatory support. No BiPAP. No intubation was performed. We did place him on oxygen. He was diuresed and his mental status improved markedly. He was noted to be fairly anemic when he came in with a hemoglobin at 7.5. He was transfused 2 units of packed red blood cells over the course of his stay with a final hemoglobin of 8.6. He was seen in consultation by Dr. Rodriguez while he was here who did not make any acute changes to his medications. He was discharged then to skilled care on June 25, 2017, with the following medications. CONDITION ON DISCHARGE: He is discharged to the skilled unit in markedly improved condition. MEDICATIONS ON DISCHARGE: 1. Tylenol 650 mg p.o. every 4 hours p.r.n .pain. 2. Amlodipine 10 mg p.o. daily. 3. Budesonide 0.5 mg by nebulizer b.i.d. 4. Carvedilol 25 mg p.o. b.i.d. 5. Lasix 40 mg p.o. b.i.d. 6. DuoNeb by nebulizer 1 vial q.i.d. 7. Lisinopril 40 mg daily. 8. Simvastatin 10 mg at bedtime. 9. Warfarin 3 mg daily. DISCHARGE INSTRUCTIONS: 1. Check a ProTime in the morning. 2. Occupational therapy and physical therapy consults are obtained. [facility]
== END 2017-06-25 16:30 | DRG 189 ==
LOC: ED 04:32 → SOUTH 05:59
PROVIDERS: ADMIT Family Medicine; ATTEND Family Medicine
DX: J96.92 Respiratory failure, unspecified with hypercapnia (principal); K92.2 Gastrointestinal hemorrhage, unspecified; I48.91 Unspecified atrial fibrillation; I50.9 Heart failure, unspecified; Z79.01 Long term (current) use of anticoagulants
CPT/HCPCS: 36415; 36600; 51702; 71010; 80048; 80053; 81002; 82270; 82803; 83880; 84484; 85025; 85027; 85379; 85610; 86885; 86900; 86901; 86920; 93005; 93306; 94640; 94760; 97116; 97162; 97165; 97535; J1940; J7626; 99223; 99233; 99238; 99284; P9040; S1016

== ENCOUNTER 2017-06-25 16:30 | Inpatient (IN) | payer OTHER ==
[2017-06-25] MEDS ORDERED: ACETAMINOPHEN 325 MG TABLET PO PRN (18:01)
[2017-06-25 19:17] VITALS: BMI 19.8
[2017-06-25] MEDS: SIMVASTATIN 20 MG TABLET PO SCH (20:54)
[2017-06-25] MEDS ORDERED: CARVEDILOL 25 MG TABLET PO SCH (21:00)
[2017-06-25] MEDS: IPRATROPIUM/ALBUTEROL SULFATE 3 ML AMPUL.NEB NEB SCH (23:28)
[2017-06-26] MEDS ORDERED: CARVEDILOL 12.5 MG TABLET PO ONE (04:00)
[2017-06-26] MEDS: FUROSEMIDE 40 MG TABLET PO SCH ×2 (05:36→13:58)
[2017-06-26] MEDS ORDERED: IPRATROPIUM/ALBUTEROL SULFATE 3 ML AMPUL.NEB NEB ONE (08:48)
[2017-06-26] MEDS: IPRATROPIUM/ALBUTEROL SULFATE 3 ML AMPUL.NEB NEB SCH ×4 (08:55→23:45)
[2017-06-26] MEDS: amLODIPine BESYLATE 5 MG TABLET PO SCH (09:03)
[2017-06-26] MEDS: CARVEDILOL 12.5 MG TABLET PO SCH ×2 (09:03→20:02)
[2017-06-26] MEDS: LISINOPRIL 20 MG TABLET PO SCH (09:03)
[2017-06-26] MEDS: WARFARIN SODIUM 1 MG TABLET PO SCH (18:13)
[2017-06-26] MEDS: SIMVASTATIN 20 MG TABLET PO SCH (20:02)
[2017-06-27] MEDS: FUROSEMIDE 40 MG TABLET PO SCH ×2 (05:56→15:57)
[2017-06-27] MEDS: IPRATROPIUM/ALBUTEROL SULFATE 3 ML AMPUL.NEB NEB SCH ×4 (09:08→21:30)
[2017-06-27] MEDS: CARVEDILOL 12.5 MG TABLET PO SCH ×2 (09:57→20:46)
[2017-06-27] MEDS: amLODIPine BESYLATE 5 MG TABLET PO SCH (09:57)
[2017-06-27] MEDS: LISINOPRIL 20 MG TABLET PO SCH (09:58)
--- NOTE | 2017-06-27 17:45 | Inpatient Progress Note ---
Subjective - Required Recertification Statement I anticipate X number of days because-include discharge plan: 4 - Review of Systems Subjective: Kian was able to walk with therapy today and is doing better. He is not having much in the way of pain. His breathing is better. General: Denies: Chills HEENT: Denies: Head Aches, Post Nasal Drip Pulmonary: Dyspnea, Cough. Denies: Pleuritic Chest Pain Cardiovascular: Denies: Chest Pain Gastrointestinal: Denies: Nausea, Vomiting Genitourinary: Denies: Frequency, Other Musculoskeletal: Denies: Neck Pain, Shoulder Pain Neurological: Denies: Confusion Objective - Exam Vitals and I&O: Vital Signs Temp 99.1 F 06/27/17 09:00 Pulse 68 06/27/17 09:00 Resp 18 06/27/17 09:00 BP 117/61 06/27/17 09:00 Pulse Ox 99 06/27/17 09:00 Intake & Output 06/26/17 06/27/17 06/27/17 23:59 11:59 23:59 Intake Total 360 360 760 Balance 360 360 760 Intake: Oral 360 360 760 Other: Voiding Method Urinal Toilet # Voids 1 3 # Bowel Movements 0 General: Alert, Oriented to Person, Oriented to Place HEENT: Atraumatic, PERRLA, EOMI Neck: Supple Lungs: Prolonged Expiration, Decreased Air Movement Cardiovascular: Irregularly Irregular Abdomen: Normal bowel sounds, Soft Extremities: No clubbing, No cyanosis, No edema Skin: Normal, Pale Neurological: Normal speech Psych/Mental Status: Mental status NL - Results Results: Laboratory Results PT 18.3 Seconds (9.4-11.6) H 06/26/17 06:15 INR 1.73 (0.9-1.2) H 06/26/17 06:15 Assessment/Plan - Assessment/Plan (1) Anemia Status: Acute Current Visit: No Qualifiers: Anemia type: iron deficiency Iron deficiency anemia type: chronic blood loss Qualified Code(s): D50.0 - Iron deficiency anemia secondary to blood loss (chronic) Assessment: S/P transfusion of two units with HgB was 8.6 (2) CHF (congestive heart failure) Status: Acute Current Visit: No Assessment: Continue current diuretics (3) COPD (chronic obstructive pulmonary disease) Status: Acute Current Visit: No Assessment: Continue current nebulizer treatments/O2 (4) Hypercapnic respiratory failure Status: Acute Current Visit: No Assessment: Resolved
[2017-06-27] MEDS: WARFARIN SODIUM 1 MG TABLET PO SCH (18:43)
[2017-06-27] MEDS: SIMVASTATIN 20 MG TABLET PO SCH (20:46)
[2017-06-28] MEDS: FUROSEMIDE 40 MG TABLET PO SCH ×2 (06:03→14:14)
[2017-06-28] MEDS ORDERED: WARFARIN SODIUM 1 MG TABLET PO SCH (08:51)
[2017-06-28] MEDS: IPRATROPIUM/ALBUTEROL SULFATE 3 ML AMPUL.NEB NEB SCH ×4 (09:45→21:09)
[2017-06-28] MEDS: LISINOPRIL 20 MG TABLET PO SCH (09:59)
[2017-06-28] MEDS: amLODIPine BESYLATE 5 MG TABLET PO SCH (09:59)
[2017-06-28] MEDS: CARVEDILOL 12.5 MG TABLET PO SCH ×2 (09:59→20:31)
[2017-06-28] MEDS: SIMVASTATIN 20 MG TABLET PO SCH (20:30)
[2017-06-29] MEDS: FUROSEMIDE 40 MG TABLET PO SCH ×2 (05:05→14:26)
[2017-06-29] MEDS: amLODIPine BESYLATE 5 MG TABLET PO SCH (08:39)
[2017-06-29] MEDS: CARVEDILOL 12.5 MG TABLET PO SCH ×2 (08:39→20:28)
[2017-06-29] MEDS: LISINOPRIL 20 MG TABLET PO SCH (08:40)
[2017-06-29] MEDS: IPRATROPIUM/ALBUTEROL SULFATE 3 ML AMPUL.NEB NEB SCH ×4 (08:54→20:48)
[2017-06-29] MEDS: WARFARIN SODIUM 1 MG TABLET PO SCH (18:15)
[2017-06-29] MEDS: SIMVASTATIN 20 MG TABLET PO SCH (20:28)
[2017-06-30] MEDS: FUROSEMIDE 40 MG TABLET PO SCH ×2 (06:07→15:03)
[2017-06-30] MEDS: IPRATROPIUM/ALBUTEROL SULFATE 3 ML AMPUL.NEB NEB SCH ×4 (09:10→21:30)
[2017-06-30] MEDS: CARVEDILOL 12.5 MG TABLET PO SCH ×2 (09:35→19:47)
[2017-06-30] MEDS: amLODIPine BESYLATE 5 MG TABLET PO SCH (09:35)
[2017-06-30] MEDS: LISINOPRIL 20 MG TABLET PO SCH (09:35)
[2017-06-30] MEDS: WARFARIN SODIUM 1 MG TABLET PO SCH (18:19)
[2017-06-30] MEDS: FERROUS SULFATE 325 MG TABLET PO SCH ×2 (18:19→18:22)
[2017-06-30] MEDS: SIMVASTATIN 20 MG TABLET PO SCH (19:47)
[2017-07-01] MEDS: FUROSEMIDE 40 MG TABLET PO SCH ×2 (06:06→14:44)
[2017-07-01 06:23] LABS: MEAN CORPUSCULAR HEMOGLOBIN 31.2 pg (28.0-34.0)
[2017-07-01] MEDS: amLODIPine BESYLATE 5 MG TABLET PO SCH (08:30)
[2017-07-01] MEDS: LISINOPRIL 20 MG TABLET PO SCH (08:30)
[2017-07-01] MEDS: CARVEDILOL 12.5 MG TABLET PO SCH ×2 (08:30→19:48)
[2017-07-01] MEDS: IPRATROPIUM/ALBUTEROL SULFATE 3 ML AMPUL.NEB NEB SCH ×4 (08:50→21:00)
[2017-07-01] MEDS: FERROUS SULFATE 325 MG TABLET PO SCH ×2 (11:22→19:46)
[2017-07-01] MEDS: WARFARIN SODIUM 1 MG TABLET PO SCH (19:46)
[2017-07-01] MEDS: SIMVASTATIN 20 MG TABLET PO SCH (19:48)
[2017-07-02] MEDS: FUROSEMIDE 40 MG TABLET PO SCH (05:58)
[2017-07-02] MEDS: CARVEDILOL 12.5 MG TABLET PO SCH (08:15)
[2017-07-02] MEDS: LISINOPRIL 20 MG TABLET PO SCH (08:16)
[2017-07-02] MEDS: amLODIPine BESYLATE 5 MG TABLET PO SCH (08:16)
[2017-07-02] MEDS: IPRATROPIUM/ALBUTEROL SULFATE 3 ML AMPUL.NEB NEB SCH (08:38)
[2017-07-02 09:05] VITALS: BP 147/51
--- NOTE | 2017-07-02 12:04 | Discharge Summary ---
DATE OF ADMISSION: June 25, 2017 DATE OF DISCHARGE: July 02, 2017 DIAGNOSES ON THIS HOSPITALIZATION: 1. Hypercapnia. 2. Chronic obstructive pulmonary disease (COPD) exacerbation. 3. Mental status change. 4. Anemia. 5. Chronic blood loss. 6. Atrial fibrillation. 7. Congestive heart failure. SUMMARIZATION OF ADMISSION HISTORY AND PHYSICAL: This is a 77-year-old male who was actually initially admitted on June 22, 2017 , with respiratory failure. His pCO2 was over 100 and he was essentially obtunded on admission. His wishes are for no ventilatory support, so he was placed on oxygen and slowly improved. By the day after admission, his mentation was essentially back to baseline. His chest x-ray showed congestive heart failure. No infiltrates were identified. He was then continued on diuresis. He was seen in consultation by his dental laboratory technology teacher, Dr. Rodriguez, on that hospitalization and then transferred on the to skilled care. He did well in skilled care and eventually was able to get up and was walking with a walker. He remains dependent on a walker and is oxygen dependent. He was discharged to home then today on the following medications. CONDITION ON DISCHARGE: He is discharged to home in markedly improved condition. MEDICATIONS ON DISCHARGE: 1. Amlodipine 10 mg p.o. daily. 2. Carvedilol 25 mg p.o. b.i.d. 3. Ferrous sulfate 25 mg p.o. b.i.d. 4. Lasix 40 mg p.o. b.i.d. 5. DuoNeb by nebulizer, 1 vial q.i.d. 6. Lisinopril 40 mg daily. 7. Simvastatin 10 mg daily. 8. Warfarin 4 mg daily. DISCHARGE INSTRUCTIONS: Follow up with myself in 1 week for a CBC and INR and recheck. He will have his labs drawn before I see him that day, so I will have those results when I see him. JUNIOR
== END 2017-07-02 09:58 | disposition home or self-care (01) | DRG 191 ==
LOC: SOUTH 16:30
PROVIDERS: ADMIT Family Medicine; ATTEND Family Medicine
DX: J44.1 Chronic obstructive pulmonary disease with (acute) exacerbation (principal); I50.20 Unspecified systolic (congestive) heart failure; D64.9 Anemia, unspecified; I48.91 Unspecified atrial fibrillation
CPT/HCPCS: 36415; 85027; 85610; 94640; 94760; S1016

== ENCOUNTER 2017-07-02 10:06 | Outpatient (CLI) | payer OTHER ==
[2017-07-02 09:05] VITALS: BP 147/51
[2017-07-02] MEDS ORDERED: ACETAMINOPHEN 325 MG TABLET PO ONE (11:12)
[2017-07-02] MEDS ORDERED: diphenhydrAMINE HCL 25 MG TABLET PO ONE ×2 (11:13→11:16)
[2017-07-02] MEDS ORDERED: ACETAMINOPHEN 325 MG TABLET ONE (11:16)
[2017-07-02] MEDS ORDERED: 0.9 % SODIUM CHLORIDE 250 ML IV ONE (11:17)
[2017-07-02] MEDS ORDERED: SALINE FLUSH 10 ML DISP.SYRIN IVF ONE (15:37)
== END 2017-07-02 10:16 ==
LOC: INF 10:06
PROVIDERS: ATTEND Family Medicine
DX: D50.9 Iron deficiency anemia, unspecified (principal)
CPT/HCPCS: 36415; 36430; 86885; 86900; 86901; 86920; J7050; Q0163; P9040

== ENCOUNTER 2017-07-18 16:51 | Outpatient (CLI) | payer OTHER ==
[2017-07-18 16:59] LABS: BASOPHILS % 0.3 (0.0-1.5); EOSINOPHILS % 11.5 % (0.0-6.8); MEAN CORPUSCULAR HEMOGLOBIN 30.6 pg (28.0-34.0); MEAN CORPUSCULAR VOLUME 97.4 fl (80.0-100.0); MONOCYTES % 6.9 % (0.0-11.0); NEUTROPHILS # 3.2 # k/uL (1.4-7.7)
== END 2017-07-18 16:52 ==
LOC: LABRHC 16:51
PROVIDERS: ATTEND Family Medicine
DX: D50.0 Iron deficiency anemia secondary to blood loss (chronic) (principal)
CPT/HCPCS: 85025

== ENCOUNTER → 2017-08-22 | Outpatient (CLI) | payer OTHER ==
[2017-08-22 12:08] LABS: eGFR (African) 50; eGFR (Non-African) 42
--- NOTE | 2017-08-22 15:25 | Diagnostic Imaging Report ---
MIKE TARIQ [facility] [address] [facility] [address] [place], [place]. [address] Report Submission Date: Aug 22, 2017 1:32:03 PM CDT Patient Study Name: ARMOND DAVIS Date: Aug 22, 2017 11:00:17 AM CDT Modality Type: CR Gender: M Description: CHEST : 38 Institution: [facility] Physician: MIKE TARIQ Chest PA and lateral views Clinical history: Cough and dyspnea Mild cardiomegaly with atherosclerosis of the thoracic aorta. No acute infiltrates or pleural effusion. Normal bony thorax. Impression: Cardiomegaly with atherosclerosis of thoracic aorta. No acute infiltrates or pleural effusion Electronically signed on Aug 22, 2017 1:32:03 PM CDT by: John PACHECO
[2017-08-22 16:58] LABS: MEAN CORPUSCULAR HEMOGLOBIN 31.1 pg (28.0-34.0); MEAN CORPUSCULAR VOLUME 97.3 fl (80.0-100.0)
== END ==
LOC: LAB 10:51
PROVIDERS: ATTEND Family Medicine
DX: I48.91 Unspecified atrial fibrillation (principal); I50.22 Chronic systolic (congestive) heart failure
CPT/HCPCS: 36415; 71020; 80053; 85027; 85610

== ENCOUNTER 2017-09-01 11:24 | Outpatient (CLI) | payer OTHER ==
[2017-09-01 11:46] LABS: MEAN CORPUSCULAR HEMOGLOBIN 30.8 pg (28.0-34.0); MEAN CORPUSCULAR VOLUME 99.7 fl (80.0-100.0)
== END 2017-09-01 11:25 ==
LOC: LAB 11:24
PROVIDERS: ATTEND Family Medicine
DX: I48.91 Unspecified atrial fibrillation (principal)
CPT/HCPCS: 36415; 85027; 85610

== ENCOUNTER 2017-09-03 07:59 | Outpatient (CLI) | payer OTHER ==
[2017-09-03] MEDS ORDERED: 0.9 % SODIUM CHLORIDE 100 ML IV ONE ×2 (09:09→14:33)
[2017-09-03] MEDS ORDERED: SALINE FLUSH 10 ML DISP.SYRIN IVF ONE ×2 (13:07→14:33)
[2017-09-03] MEDS ORDERED: FUROSEMIDE 20 MG/2 ML VIAL ONE ×2 (13:07→18:39)
[2017-09-03] MEDS ORDERED: IPRATROPIUM/ALBUTEROL SULFATE 3 ML AMPUL.NEB NEB ONE (15:30)
== END 2017-09-03 08:00 ==
LOC: OUT 07:59
PROVIDERS: ATTEND Family Medicine
DX: D50.9 Iron deficiency anemia, unspecified (principal)
CPT/HCPCS: 36430; 86885; 86900; 86901; 86920; J1940; P9040

== ENCOUNTER 2017-12-18 04:29 | Inpatient (IN) | payer OTHER ==
--- NOTE | 2017-12-18 04:45 | ED Physician Documentation ---
General Adult - HISTORIAN Historian: patient - HPI Stated Complaint: sob Chief Complaint: General Adult Onset: hours Timing: still present Severity: moderate Further Comments: yes (Pt is a 77 yo male with COPD on 5 L NC O2 at home, and with CHF, who was sob this am. Son discovered pt sob, with oxygen tubing kinked under his chair. Pt denies chest pain. Pt has had some mild nausea and c/o constipation.) - ROS CONST: weakness EYES/ENT: none CVS/RESP: shortness of breath GI/: other (constipation) MS/SKIN/LYMPH: none - PAST HX Past History: other (Afib, CHF, HTN, COPD, CVA, Iron Deficiency Anemia, Depression) Surgeries/Procedures: other (Appendectomy, Catarac Removal, Hemorhoidectomy) Allergies/Adverse Reactions: Allergies Allergy/AdvReac Type Severity Reaction Status Date / Time levofloxacin Allergy Intermediate bleeding Verified 12/18/17 04:40 trazodone Allergy Mild Nausea/Vomi Verified 12/18/17 04:40 ting Sulfa (Sulfonamide Allergy Verified 12/18/17 04:40 Antibiotics) [Sulfa(Sulfonamide Antibiotics)] Home Medications: Ambulatory Orders Medication Instructions Recorded Oxygen 5 lt NS SEE.INSTRUCTIONS 07/06/13 Diclofenac Sodium [Voltaren] 75 mg PO BID 10/22/15 Warfarin Sodium [Warfarin Sodium] 2.5 mg PO M1800 01/16/17 Warfarin Sodium [Warfarin Sodium] 5 mg PO [id number] 01/16/17 - SOCIAL HX Smoking History: cigarettes - FAMILY HX Family History: No - VITAL SIGNS Vital Signs: Vital Signs Temp Pulse Resp BP Pulse Ox 147/51 07/02/17 09:00 - REVIEWED ASSESSMENTS Nursing Assessment Reviewed: Yes Vitals Reviewed: Yes Progress - Progress Progress: Douneb HFN waiter/waitress captain with EMT's. CXR: Single view of the chest demonstrates an enlarged cardiac silhouette. Vascular calcifications involving the aortic arch. Diffuse parenchymal interstitial haziness. Blunting of the left lung base and costophrenic margin. Articular degenerative changes. Impression: Cardiomegaly. Diffuse parenchymal haziness and left base effusion suggesting congestive failure. Correlate with patient symptoms. X-ray abd: Moderate stool throughout the large bowel. No obstruction. Lasix 40 mg IV Admit to Dr. Ramirez. CHF, COPD, Anemia. - EKG/XRAY/CT EKG: NSR (HR=68; normal axis; normal NM interval.) General Adult Physical Exam - PHYSICAL EXAM GENERAL APPEARANCE: mild distress EENT: pharynx normal NECK: normal inspection, supple RESPIRATORY: no resp distress, chest non-tender, rales, other (distant breath sounds) CVS: reg rate & rhythm, heart sounds normal ABDOMEN: soft, no organomegaly, tenderness (mild diffuse abd tenderness), decreased BS BACK: normal inspection, no CVA tenderness SKIN: pallor EXTREMITIES: non-tender, no evidence of injury, no edema NEURO: motor nml, sensation nml, other (baseline mental status) Discharge Clincal Impression: Dyspnea, Anemia CHF (congestive heart failure) Qualifiers: Congestive heart failure type: unspecified Congestive heart failure chronicity : unspecified Qualified Code(s): I50.9 - Heart failure, unspecified Referrals: Lance Ramirez MD [Primary Care Provider] - Condition: Fair Disposition: 09 ADMITTED INPATIENT Decision to Admit: [id number] Decision Time: 06:15
[2017-12-18 05:43] LABS: BASOPHILS % 1.4 (0.0-1.5); MEAN CORPUSCULAR HEMOGLOBIN 32.7 pg (28.0-34.0); MEAN CORPUSCULAR VOLUME 106.9 fl (80.0-100.0); MONOCYTES % 5.9 % (0.0-11.0)
--- NOTE | 2017-12-18 05:49 | Diagnostic Imaging Report ---
LANI MEDINA [facility] [address] [facility] [address] [address] Report Submission Date: Dec 18, 2017 5:43:28 AM FACILITIES COORDINATOR Patient Study Name: ARMOND DAVIS Date: Dec 18, 2017 5:11:35 AM FACILITIES COORDINATOR Modality Type: CR Gender: M Description: CHEST : 38 Institution: [facility] Physician: LANI MEDINA Examination: Portable chest History: SOA (Hx) / SOA (DICOM Hx) / SOA (Pt comments) Comparison exam: 22 August 2017 Findings: Single view of the chest demonstrates an enlarged cardiac silhouette. Vascular calcifications involving the aortic arch. Diffuse parenchymal interstitial haziness. Blunting of the left lung base and costophrenic margin. Articular degenerative changes. Impression: Cardiomegaly. Diffuse parenchymal haziness and left base effusion suggesting congestive failure. Correlate with patient symptoms. Electronically signed on Dec 18, 2017 5:43:28 AM FACILITIES COORDINATOR by: Mark PACHECO
--- NOTE | 2017-12-18 05:50 | Diagnostic Imaging Report ---
LANI MEDINA [facility] [address] [facility] [address] [place] [address]. [id number] Report Submission Date: Dec 18, 2017 5:47:20 AM ANALYTICS DEVELOPER Patient Study Name: ARMOND DAVIS Date: Dec 18, 2017 5:18:45 AM ANALYTICS DEVELOPER Modality Type: CR Gender: M Description: ABDOMEN : 38 Institution: [facility] Physician: LANI MEDINA Examination: Abdomen series History: ABD PAIN (Hx) / ABD PAIN (DICOM Hx) / ABD PAIN (Pt comments) Findings: 2 views obtained of the abdomen. No abnormal dilation of the large or small bowel. Moderate stool throughout the large bowel. 4 mm calcification projecting over the mid left renal fossa. Smaller calcifications projecting over the upper pole of the left renal fossa. No suspicious pelvic calcifications. Degenerative changes of the lumbar spine and hip articulations. Vascular calcifications. Impression: Moderate stool throughout the large bowel. No obstruction. Left renal region calcifications - if suspect nephrolithiasis as etiology for patient's discomfort, consider obtaining non contrast CT to further evaluate. Electronically signed on Dec 18, 2017 5:47:20 AM ANALYTICS DEVELOPER by: Mark PACHECO
[2017-12-18] MEDS ORDERED: FUROSEMIDE 40 MG/4 ML VIAL IVP ONE ×2 (06:13→11:45)
[2017-12-18] MEDS ORDERED: IPRATROPIUM/ALBUTEROL SULFATE 3 ML AMPUL.NEB NEB PRN (06:31)
[2017-12-18 10:00] LABS: HYPOCHROMASIA 2+ (NEGATIVE)
[2017-12-18] MEDS ORDERED: 0.9 % SODIUM CHLORIDE 100 ML IV ONE (11:27)
[2017-12-18] MEDS ORDERED: CARVEDILOL 12.5 MG TABLET PO ONE ×2 (11:35→14:21)
[2017-12-18] MEDS ORDERED: ACETAMINOPHEN 325 MG TABLET ONE (11:39)
[2017-12-18] MEDS ORDERED: diphenhydrAMINE HCL 25 MG TABLET PO ONE ×2 (11:40→11:45)
[2017-12-18] MEDS ORDERED: ACETAMINOPHEN ORAL SOLUTION 325 MG/10.15 ML CUP PO ONE (11:43)
[2017-12-18] MEDS: POTASSIUM CHLORIDE 10 MEQ TABLET.ER PO SCH ×2 (11:44→11:51)
[2017-12-18] MEDS: CARVEDILOL 25 MG TABLET PO SCH ×2 (11:44→19:54)
[2017-12-18] MEDS: amLODIPine BESYLATE 5 MG TABLET PO SCH (11:44)
[2017-12-18] MEDS: LISINOPRIL 20 MG TABLET PO SCH (11:46)
[2017-12-18] MEDS: SALINE FLUSH 10 ML DISP.SYRIN IV SCH ×2 (11:46→19:58)
[2017-12-18] MEDS: BUDESONIDE 0.5MG/2ML AMPUL.NEB NEB SCH ×2 (11:56→20:01)
[2017-12-18] MEDS ORDERED: SIMVASTATIN 20 MG TABLET ONE (14:21)
[2017-12-18 15:08] VITALS: BMI 18.7
[2017-12-18] MEDS: WARFARIN SODIUM 1 MG TABLET PO SCH (17:34)
[2017-12-18] MEDS: SIMVASTATIN 20 MG TABLET PO SCH (19:54)
[2017-12-19] MEDS ORDERED: CARVEDILOL 12.5 MG TABLET PO ONE ×2 (05:18→11:36)
[2017-12-19 06:33] LABS: MEAN CORPUSCULAR HEMOGLOBIN 30.8 pg (28.0-34.0); MEAN CORPUSCULAR VOLUME 99.7 fl (80.0-100.0)
--- NOTE | 2017-12-19 08:41 | Inpatient Progress Note ---
Subjective - Required Recertification Statement I anticipate X number of days because-include discharge plan: 2 - Review of Systems Events since last encounter: Kian is still very weak and SOB today. He is not having any chest pain. He says that he does not have any chest pain, but feels very weak. He has really not been out of bed since admission. He is currently on 5LNC. General: Denies: Chills, Night Sweats HEENT: Denies: Head Aches Pulmonary: Dyspnea, Cough Cardiovascular: Orthopnea. Denies: Chest Pain Gastrointestinal: Denies: Nausea, Vomiting Genitourinary: Denies: Dysuria, Frequency Musculoskeletal: Denies: Neck Pain Neurological: Weakness. Denies: Change in Speech, Confusion Objective - Exam Vitals and I&O: Vital Signs Temp 97.7 F 12/19/17 06:00 Pulse 74 12/19/17 07:00 Resp 20 12/19/17 06:00 BP 159/74 12/19/17 06:00 Pulse Ox 97 12/19/17 06:00 Intake & Output 12/18/17 12/18/17 12/19/17 11:59 23:59 11:59 Intake Total 200 120 Output Total 400 Balance 200 -280 Weight 55.792 kg Intake: Oral 200 120 Output: Urine 400 Other: Voiding Method Urinal Urinal Urinal General: Alert, Oriented to Person, Other (sleepy) HEENT: Atraumatic, PERRLA, EOMI Neck: Supple, No JVD Lungs: Wheezes, Prolonged Expiration, Decreased Air Movement Cardiovascular: Irregularly Irregular Abdomen: Normal bowel sounds, Soft Extremities: No clubbing, No cyanosis, No edema Skin: Pale Neurological: Normal speech, Strength Equal Bilat - Results Results: Laboratory Results WBC 5.80 K/ul (4.00-12.00) 12/19/17 06:10 RBC 3.23 M/ul (3.90-5.20) L 12/19/17 06:10 Hgb 10.0 g/dL (12.0-18.0) L 12/19/17 06:10 Hct 32.2 % (37.0-53.0) L 12/19/17 06:10 MCV 99.7 fl (80.0-100.0) 12/19/17 06:10 MCH 30.8 pg (28.0-34.0) 12/19/17 06:10 MCHC 30.9 g/dL (30.0-36.0) 12/19/17 06:10 RDW 18.1 % (11.3-14.3) H 12/19/17 06:10 Plt Count 177 K/mm3 (130-400) 12/19/17 06:10 Neut % (Auto) 62.2 % (39.0-79.0) 12/18/17 04:59 Lymph % (Auto) 19.2 % (16.0-50.0) 12/18/17 04:59 [place] % (Auto) 5.9 % (0.0-11.0) 12/18/17 04:59 Eos % (Auto) 10.0 % (0.0-6.8) H 12/18/17 04:59 Baso % (Auto) 1.4 (0.0-1.5) 12/18/17 04:59 Neut # (Auto) 4.0 # k/uL (1.4-7.7) 12/18/17 04:59 Lymph # (Auto) 1.2 # k/uL (0.6-4.0) 12/18/17 04:59 [place] # (Auto) 0.4 # k/uL (0.0-0.9) 12/18/17 04:59 Eos # (Auto) 0.6 # k/uL (0.0-0.6) 12/18/17 04:59 Baso # (Auto) 0.1 # k/uL (0.0-0.5) 12/18/17 04:59 Reactive Lymphs % 1.3 % (0.0-5.0) 12/18/17 04:59 Reactive Lymphs # 0.1 # k/uL (0.0-0.8) 12/18/17 04:59 Plt Morphology Comment Normal (NORMAL) 12/18/17 04:59 Hypochromasia 2+ (NEGATIVE) H 12/18/17 04:59 Poikilocytosis 1+ (NEGATIVE) H 12/18/17 04:59 Macrocytosis 1+ (NEGATIVE) H 12/18/17 04:59 RBC Morph Comment Abnormal (NORMAL) H 12/18/17 04:59 PT 13.7 Seconds (9.4-11.6) H 12/18/17 04:59 INR 1.30 (0.9-1.2) H 12/18/17 04:59 APTT 24.3 Seconds (24.5-32.8) L 12/18/17 04:59 Sodium 147 mmol/L (136-145) H 12/19/17 06:10 Potassium 4.6 mmol/L (3.5-5.1) 12/19/17 06:10 Chloride 99 mmol/L (98-107) 12/19/17 06:10 Carbon Dioxide 36 mmol/L (22-30) H 12/19/17 06:10 BUN 35 mg/dL (9-20) H 12/19/17 06:10 Creatinine 1.80 mg/dL (0.66-1.25) H 12/19/17 06:10 Estimated Creat Clear 26 12/19/17 06:10 Est GFR ( Amer) 47 (60-) L 12/19/17 06:10 Est GFR (Non-Af Amer) 39 (60-) L 12/19/17 06:10 Glucose 93 mg/dL (74-106) 12/19/17 06:10 Calcium 12.2 mg/dL (8.4-10.2) H 12/19/17 06:10 Total Bilirubin 0.8 mg/dL (0.2-1.3) 12/19/17 06:10 AST 15 U/L (15-46) 12/19/17 06:10 ALT 25 U/L (13-69) 12/19/17 06:10 Alkaline Phosphatase 58 U/L (38-126) 12/19/17 06:10 Creatine Kinase 47 U/L (55-170) L 12/18/17 04:59 CK-MB (CK-2) 1.8 ng/mL (0.0-5.6) 12/18/17 04:59 Troponin I < 0.03 ng/mL (0.03-0.06) L 12/18/17 04:59 NT-Pro-B Natriuret Pep 7813.8 pg/mL (15.0-450.0) H 12/18/17 04:59 Total Protein 6.1 g/dL (6.3-8.2) L 12/19/17 06:10 Albumin 3.0 g/dL (3.5-5.0) L 12/19/17 06:10 Assessment/Plan - Assessment/Plan (1) Anemia Status: Acute Current Visit: No Qualifiers: Anemia type: iron deficiency Iron deficiency anemia type: chronic blood loss Qualified Code(s): D50.0 - Iron deficiency anemia secondary to blood loss (chronic) Assessment: Hemoglobin is up to 10 now (2) CHF (congestive heart failure) Status: Acute Current Visit: Yes Qualifiers: Congestive heart failure type: unspecified Congestive heart failure chronicity: unspecified Qualified Code(s): I50.9 - Heart failure, unspecified Assessment: Continue diuresis, monitor renal function (3) COPD (chronic obstructive pulmonary disease) Status: Acute Current Visit: No Qualifiers: 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
[2017-12-19] MEDS: CARVEDILOL 25 MG TABLET PO SCH (09:11)
[2017-12-19] MEDS: LISINOPRIL 20 MG TABLET PO SCH (09:11)
[2017-12-19] MEDS: amLODIPine BESYLATE 5 MG TABLET PO SCH (09:12)
[2017-12-19] MEDS: POTASSIUM CHLORIDE 10 MEQ TABLET.ER PO SCH (09:12)
[2017-12-19] MEDS: BUDESONIDE 0.5MG/2ML AMPUL.NEB NEB SCH ×2 (09:17→21:40)
[2017-12-19] MEDS: SALINE FLUSH 10 ML DISP.SYRIN IV SCH ×2 (09:17→21:40)
--- NOTE | 2017-12-19 11:17 | History and Physical Report ---
CHIEF COMPLAINT: 1. Congestive heart failure. 2. Anemia. 3. Chronic atrial fibrillation. HISTORY OF PRESENT ILLNESS: This is a 77-year-old male with multiple medical problems well known to myself who presented to the emergency department on the day of admission with a complaint of increasing shortness of breath and wheezing. He had gotten so weak that he was unable to move about his home and also was very short of breath and came to the emergency room for an evaluation where he was noted to be in congestive heart failure with findings consistent with that on exam, as well as a markedly elevated BNP at 7813 and a chest x-ray consistent with that. His hemoglobin was also noted to be at 7.7. He was admitted for treatment of congestive heart failure, as well as for a transfusion of 2 units of packed red blood cells. PAST MEDICAL HISTORY: 1. History of chronic atrial fibrillation. 2. Congestive heart failure. 3. Recurrent GI bleeds with result in anemia. 4. Iron deficiency anemia. 5. Chronic obstructive pulmonary disease. 6. Continued tobacco abuse. PAST SURGICAL HISTORY: 1. He has had an appendectomy. 2. Hemorrhoidectomy. 3. Cataract surgery. MEDICATIONS: He is usually on the following medications: 1. Potassium chloride 10 mEq p.o. daily. 2. Amlodipine 10 mg p.o. daily. 3. Lisinopril 40 mg daily. 4. DuoNeb by nebulizer 1 vial by nebulizer q.i.d. 5. Budesonide 0.5 mg 1 vial b.i.d. 6. Warfarin 3 mg on Friday, Friday, Friday, , Friday and Friday and 2.5 mg on Friday. 7. Simvastatin 10 mg daily. He is chronically oxygen dependent at home. SOCIAL HISTORY: He lives with his Jovita. He is retired. He continues to smoke about a pack a day and has done so for well over 50 years. He is not thinking of quitting at this time. FAMILY HISTORY: Noncontributory. CODE STATUS: NO CODE BLUE. REVIEW OF SYSTEMS: Notable for increasing shortness of breath. He denies any blood in his stools. He has had no fever, chills, nausea or vomiting. He has had a cough which has been mildly productive. He has had some orthopnea. He has had marked weakness. PHYSICAL EXAMINATION: General: This is a very ill-appearing 77-year-old male who is underweight. He is sitting up in bed and his head is on his chest. He is alert and oriented. He says he is most comfortable in this position and declines repositioning of his pillows. Vital Signs: T: 98.6, P: 88, irregular, BP: 147/45, pulse oximetry is 100% on 5 liters. HEENT: Shows his head to be normocephalic and atraumatic. His hair is very disheveled. His dentition are in poor repair. Mucous membranes are slightly dry. Neck: JVD is noted bilaterally. Lungs: His lungs show markedly little air excursion. He has wheezing in all lung burrows. Heart: His heart is irregularly irregular. Abdomen: Soft. No guarding. No rebound. Extremities: Warm and well perfused. Minimal edema is really noted at this time. LABORATORIES: White count 6400, hemoglobin 7.7, hematocrit 25.1, platelets 221,000. His INR is 1.3. Chemistry panel shows a sodium of 145, potassium 4.5, chloride 101, BUN 32, creatinine 1.7, which is slightly worse from his last examination. Glucose 120, calcium is a little elevated at 12.9, that is likely because he is a little dehydrated. LFTs are not elevated. Troponin is negative. Albumin 3.1, about stable for him. ASSESSMENT: 1. Chronic blood loss anemia. 2. Chronic atrial fibrillation. 3. Congestive heart failure. 4. Chronic obstructive pulmonary disease (COPD) with recurrent exacerbation. 5. Continued smoking. PLAN: 1. He is admitted. 2. Transfuse 2 units of packed red blood cells. 3. Supplemental oxygen to keep oxygen saturations over 90%. 4. We will recheck a CBC and a CMP in the morning. 5. Again, encourage smoking cessation. 6. He does not want to come off anticoagulation; but at this point, I really am hesitant to increase his warfarin. 7. He remains a NO CODE BLUE at this time. JUNIOR
[2017-12-19] MEDS: WARFARIN SODIUM 1 MG TABLET PO SCH (17:41)
[2017-12-19] MEDS: SIMVASTATIN 20 MG TABLET PO SCH (20:03)
[2017-12-19] MEDS: CARVEDILOL 12.5 MG TABLET PO SCH (20:03)
[2017-12-20] MEDS: BUDESONIDE 0.5MG/2ML AMPUL.NEB NEB SCH ×2 (09:00→21:34)
[2017-12-20] MEDS: CARVEDILOL 12.5 MG TABLET PO SCH ×2 (09:11→19:46)
[2017-12-20] MEDS: LISINOPRIL 20 MG TABLET PO SCH (09:11)
[2017-12-20] MEDS: amLODIPine BESYLATE 5 MG TABLET PO SCH (09:11)
[2017-12-20] MEDS: SALINE FLUSH 10 ML DISP.SYRIN IV SCH ×2 (09:12→19:46)
[2017-12-20] MEDS: POTASSIUM CHLORIDE 10 MEQ TABLET.ER PO SCH (09:12)
--- NOTE | 2017-12-20 13:09 | Inpatient Progress Note ---
Subjective - Required Recertification Statement I anticipate X number of days because-include discharge plan: 2 - Review of Systems Events since last encounter: Kian has improved some today. He was able to stand for a change of his gown. He declines an offer of Hospice (we have spoken about this before and he has declined). He has not had any bloody stools. He is on 5 LNC. Even movement in his bed renders him very short of breath. General: Denies: Chills HEENT: Denies: Head Aches, Visual Changes Pulmonary: Dyspnea, Cough Cardiovascular: Denies: Chest Pain Gastrointestinal: Denies: Nausea, Vomiting Genitourinary: Denies: Dysuria Musculoskeletal: Denies: Neck Pain, Shoulder Pain Neurological: Weakness. Denies: Change in Speech, Confusion Objective - Exam Vitals and I&O: Vital Signs Temp 97.5 F L 12/20/17 10:00 Pulse 59 L 12/20/17 11:00 Resp 18 12/20/17 10:00 BP 156/71 12/20/17 10:00 Pulse Ox 100 12/20/17 10:00 Intake & Output 12/19/17 12/20/17 12/20/17 23:59 11:59 23:59 Intake Total 620 30 120 Output Total 125 150 Balance 495 -120 120 Intake: Oral 620 30 120 Output: Urine 125 150 Other: Voiding Method Urinal Urinal # Voids 3 General: Alert, Oriented to Person, Oriented to Place, Oriented to Time, Mild distress (respiratory) HEENT: Atraumatic, PERRLA Neck: Supple Lungs: Respiratory Distress, Wheezes, Prolonged Expiration, Decreased Air Movement Cardiovascular: Irregularly Irregular Abdomen: Normal bowel sounds, Soft, No tenderness Extremities: No clubbing, No cyanosis, No edema Skin: Pale Neurological: Normal speech Psych/Mental Status: Mental status NL - Results Results: Laboratory Results WBC 5.80 K/ul (4.00-12.00) 12/19/17 06:10 RBC 3.23 M/ul (3.90-5.20) L 12/19/17 06:10 Hgb 10.0 g/dL (12.0-18.0) L 12/19/17 06:10 Hct 32.2 % (37.0-53.0) L 12/19/17 06:10 MCV 99.7 fl (80.0-100.0) 12/19/17 06:10 MCH 30.8 pg (28.0-34.0) 12/19/17 06:10 MCHC 30.9 g/dL (30.0-36.0) 12/19/17 06:10 RDW 18.1 % (11.3-14.3) H 12/19/17 06:10 Plt Count 177 K/mm3 (130-400) 12/19/17 06:10 Neut % (Auto) 62.2 % (39.0-79.0) 12/18/17 04:59 Lymph % (Auto) 19.2 % (16.0-50.0) 12/18/17 04:59 [place] % (Auto) 5.9 % (0.0-11.0) 12/18/17 04:59 Eos % (Auto) 10.0 % (0.0-6.8) H 12/18/17 04:59 Baso % (Auto) 1.4 (0.0-1.5) 12/18/17 04:59 Neut # (Auto) 4.0 # k/uL (1.4-7.7) 12/18/17 04:59 Lymph # (Auto) 1.2 # k/uL (0.6-4.0) 12/18/17 04:59 [place] # (Auto) 0.4 # k/uL (0.0-0.9) 12/18/17 04:59 Eos # (Auto) 0.6 # k/uL (0.0-0.6) 12/18/17 04:59 Baso # (Auto) 0.1 # k/uL (0.0-0.5) 12/18/17 04:59 Reactive Lymphs % 1.3 % (0.0-5.0) 12/18/17 04:59 Reactive Lymphs # 0.1 # k/uL (0.0-0.8) 12/18/17 04:59 Plt Morphology Comment Normal (NORMAL) 12/18/17 04:59 Hypochromasia 2+ (NEGATIVE) H 12/18/17 04:59 Poikilocytosis 1+ (NEGATIVE) H 12/18/17 04:59 Macrocytosis 1+ (NEGATIVE) H 12/18/17 04:59 RBC Morph Comment Abnormal (NORMAL) H 12/18/17 04:59 PT 13.7 Seconds (9.4-11.6) H 12/18/17 04:59 INR 1.30 (0.9-1.2) H 12/18/17 04:59 APTT 24.3 Seconds (24.5-32.8) L 12/18/17 04:59 Sodium 147 mmol/L (136-145) H 12/19/17 06:10 Potassium 4.6 mmol/L (3.5-5.1) 12/19/17 06:10 Chloride 99 mmol/L (98-107) 12/19/17 06:10 Carbon Dioxide 36 mmol/L (22-30) H 12/19/17 06:10 BUN 35 mg/dL (9-20) H 12/19/17 06:10 Creatinine 1.80 mg/dL (0.66-1.25) H 12/19/17 06:10 Estimated Creat Clear 26 12/19/17 06:10 Est GFR ( Amer) 47 (60-) L 12/19/17 06:10 Est GFR (Non-Af Amer) 39 (60-) L 12/19/17 06:10 Glucose 93 mg/dL (74-106) 12/19/17 06:10 Calcium 12.2 mg/dL (8.4-10.2) H 12/19/17 06:10 Total Bilirubin 0.8 mg/dL (0.2-1.3) 12/19/17 06:10 AST 15 U/L (15-46) 12/19/17 06:10 ALT 25 U/L (13-69) 12/19/17 06:10 Alkaline Phosphatase 58 U/L (38-126) 12/19/17 06:10 Creatine Kinase 47 U/L (55-170) L 12/18/17 04:59 CK-MB (CK-2) 1.8 ng/mL (0.0-5.6) 12/18/17 04:59 Troponin I < 0.03 ng/mL (0.03-0.06) L 12/18/17 04:59 NT-Pro-B Natriuret Pep 7813.8 pg/mL (15.0-450.0) H 12/18/17 04:59 Total Protein 6.1 g/dL (6.3-8.2) L 12/19/17 06:10 Albumin 3.0 g/dL (3.5-5.0) L 12/19/17 06:10 Assessment/Plan - Assessment/Plan (1) Anemia Status: Acute Current Visit: No Qualifiers: Anemia type: iron deficiency Iron deficiency anemia type: chronic blood loss Qualified Code(s): D50.0 - Iron deficiency anemia secondary to blood loss (chronic) Assessment: Check CBC in the am (2) CHF (congestive heart failure) Status: Acute Current Visit: Yes Qualifiers: Congestive heart failure type: unspecified Congestive heart failure chronicity: unspecified Qualified Code(s): I50.9 - Heart failure, unspecified Assessment: Continue diuresis (3) COPD (chronic obstructive pulmonary disease) Status: Acute Current Visit: No Qualifiers: COPD type: emphysema Emphysema type: panlobular Qualified Code(s): J43.1 - Panlobular emphysema Assessment: Continue supplemental O2, nebulizer treatments
[2017-12-20] MEDS: WARFARIN SODIUM 1 MG TABLET PO SCH (18:01)
[2017-12-20] MEDS: NICOTINE 21mg 1 EACH PATCH.TD24 TD SCH (19:30)
[2017-12-20] MEDS: SIMVASTATIN 20 MG TABLET PO SCH (19:46)
[2017-12-21 07:40] LABS: MEAN CORPUSCULAR HEMOGLOBIN 30.9 pg (28.0-34.0); MEAN CORPUSCULAR VOLUME 100.9 fl (80.0-100.0)
--- NOTE | 2017-12-21 08:15 | Diagnostic Imaging Report ---
[facility] [address] [facility].[address] [address] Report Submission Date: Dec 21, 2017 7:42:39 AM CASE INVESTIGATOR Patient Study Name: ARMOND DAVIS Date: Dec 21, 2017 7:10:01 AM CASE INVESTIGATOR Modality Type: CR Gender: M Description: CHEST : 38 Institution: [facility] Physician: ROHAN JEAN BAPTISTE/MED SURG Electronically signed on Dec 21, 2017 7:42:39 AM CASE INVESTIGATOR by: Mey PACHECO
[2017-12-21] MEDS: CARVEDILOL 12.5 MG TABLET PO SCH ×2 (08:27→20:38)
[2017-12-21] MEDS: POTASSIUM CHLORIDE 10 MEQ TABLET.ER PO SCH (08:27)
[2017-12-21] MEDS: NICOTINE 21mg 1 EACH PATCH.TD24 TD SCH (08:27)
[2017-12-21] MEDS: amLODIPine BESYLATE 5 MG TABLET PO SCH (08:28)
[2017-12-21] MEDS: LISINOPRIL 20 MG TABLET PO SCH (08:28)
[2017-12-21] MEDS: SALINE FLUSH 10 ML DISP.SYRIN IV SCH ×2 (08:28→22:02)
[2017-12-21] MEDS: BUDESONIDE 0.5MG/2ML AMPUL.NEB NEB SCH ×2 (09:50→22:00)
--- NOTE | 2017-12-21 16:47 | Inpatient Progress Note ---
Subjective - Required Recertification Statement I anticipate X number of days because-include discharge plan: 3 - Review of Systems Events since last encounter: Kian's labs are stable, but his renal function has declined. His CXR did not show any infiltrates, however it did show worsening congestive heart failure. He is still very short of breath with conversation. He is eating well. General: Denies: Chills, Night Sweats HEENT: Denies: Head Aches Pulmonary: Dyspnea, Cough Cardiovascular: Denies: Chest Pain Gastrointestinal: Denies: Nausea Genitourinary: Denies: Dysuria Musculoskeletal: Denies: Neck Pain Neurological: Weakness. Denies: Change in Speech, Confusion Objective - Exam Vitals and I&O: Vital Signs Temp 97.5 F L 12/21/17 14:00 Pulse 65 12/21/17 15:00 Resp 18 12/21/17 14:00 BP 151/59 12/21/17 14:00 Pulse Ox 99 12/21/17 14:00 Intake & Output 12/20/17 12/21/17 12/21/17 23:59 11:59 23:59 Intake Total 760 240 540 Output Total 300 Balance 760 -60 540 Intake: Oral 760 240 540 Output: Urine 300 Other: Voiding Method Urinal Urinal # Voids 2 2 General: Alert, Oriented to Person, Oriented to Place, Moderate distress ( respiratory ), Discheveled, Thin HEENT: Atraumatic Neck: Supple, No JVD Lungs: Respiratory Distress, Prolonged Expiration, Decreased Air Movement Cardiovascular: Irregularly Irregular Abdomen: Normal bowel sounds, Soft Extremities: No clubbing, No cyanosis Skin: Normal Neurological: Normal speech Psych/Mental Status: Mental status NL - Results Results: Laboratory Results WBC 5.20 K/ul (4.00-12.00) 12/21/17 07:25 RBC 3.19 M/ul (3.90-5.20) L 12/21/17 07:25 Hgb 9.9 g/dL (12.0-18.0) L 12/21/17 07:25 Hct 32.2 % (37.0-53.0) L 12/21/17 07:25 MCV 100.9 fl (80.0-100.0) H 12/21/17 07:25 MCH 30.9 pg (28.0-34.0) 12/21/17 07:25 MCHC 30.6 g/dL (30.0-36.0) 12/21/17 07:25 RDW 16.6 % (11.3-14.3) H 12/21/17 07:25 Plt Count 150 K/mm3 (130-400) 12/21/17 07:25 Neut % (Auto) 62.2 % (39.0-79.0) 12/18/17 04:59 Lymph % (Auto) 19.2 % (16.0-50.0) 12/18/17 04:59 [place] % (Auto) 5.9 % (0.0-11.0) 12/18/17 04:59 Eos % (Auto) 10.0 % (0.0-6.8) H 12/18/17 04:59 Baso % (Auto) 1.4 (0.0-1.5) 12/18/17 04:59 Neut # (Auto) 4.0 # k/uL (1.4-7.7) 12/18/17 04:59 Lymph # (Auto) 1.2 # k/uL (0.6-4.0) 12/18/17 04:59 [place] # (Auto) 0.4 # k/uL (0.0-0.9) 12/18/17 04:59 Eos # (Auto) 0.6 # k/uL (0.0-0.6) 12/18/17 04:59 Baso # (Auto) 0.1 # k/uL (0.0-0.5) 12/18/17 04:59 Reactive Lymphs % 1.3 % (0.0-5.0) 12/18/17 04:59 Reactive Lymphs # 0.1 # k/uL (0.0-0.8) 12/18/17 04:59 Plt Morphology Comment Normal (NORMAL) 12/18/17 04:59 Hypochromasia 2+ (NEGATIVE) H 12/18/17 04:59 Poikilocytosis 1+ (NEGATIVE) H 12/18/17 04:59 Macrocytosis 1+ (NEGATIVE) H 12/18/17 04:59 RBC Morph Comment Abnormal (NORMAL) H 12/18/17 04:59 PT 13.7 Seconds (9.4-11.6) H 12/18/17 04:59 INR 1.30 (0.9-1.2) H 12/18/17 04:59 APTT 24.3 Seconds (24.5-32.8) L 12/18/17 04:59 Sodium 146 mmol/L (136-145) H 12/21/17 07:25 Potassium 5.2 mmol/L (3.5-5.1) H 12/21/17 07:25 Chloride 100 mmol/L (98-107) 12/21/17 07:25 Carbon Dioxide 36 mmol/L (22-30) H 12/21/17 07:25 BUN 50 mg/dL (9-20) H 12/21/17 07:25 Creatinine 2.00 mg/dL (0.66-1.25) H 12/21/17 07:25 Estimated Creat Clear 24 12/21/17 07:25 Est GFR ( Amer) 42 (60-) L 12/21/17 07:25 Est GFR (Non-Af Amer) 35 (60-) L 12/21/17 07:25 Glucose 87 mg/dL (74-106) 12/21/17 07:25 Calcium 11.5 mg/dL (8.4-10.2) H 12/21/17 07:25 Total Bilirubin 0.9 mg/dL (0.2-1.3) 12/21/17 07:25 AST 22 U/L (15-46) 12/21/17 07:25 ALT 29 U/L (13-69) 12/21/17 07:25 Alkaline Phosphatase 55 U/L (38-126) 12/21/17 07:25 Creatine Kinase 47 U/L (55-170) L 12/18/17 04:59 CK-MB (CK-2) 1.8 ng/mL (0.0-5.6) 12/18/17 04:59 Troponin I < 0.03 ng/mL (0.03-0.06) L 12/18/17 04:59 NT-Pro-B Natriuret Pep 7813.8 pg/mL (15.0-450.0) H 12/18/17 04:59 Total Protein 6.3 g/dL (6.3-8.2) 12/21/17 07:25 Albumin 3.2 g/dL (3.5-5.0) L 12/21/17 07:25 Assessment/Plan - Assessment/Plan (1) Anemia Status: Acute Current Visit: No Qualifiers: Anemia type: iron deficiency Iron deficiency anemia type: chronic blood loss Qualified Code(s): D50.0 - Iron deficiency anemia secondary to blood loss (chronic) Assessment: Follow CBCs (2) CHF (congestive heart failure) Status: Acute Current Visit: Yes Qualifiers: Congestive heart failure type: unspecified Congestive heart failure chronicity: unspecified Qualified Code(s): I50.9 - Heart failure, unspecified Assessment: With worsening renal failure and CHF Plan: Will consult Dr. Patino tomorrow (3) COPD (chronic obstructive pulmonary disease) Status: Acute Current Visit: No Qualifiers: COPD type: emphysema Emphysema type: panlobular Qualified Code(s): J43.1 - Panlobular emphysema Assessment: Continue nebulizer treatments/supplemental O2
[2017-12-21] MEDS: IPRATROPIUM/ALBUTEROL SULFATE 3 ML AMPUL.NEB NEB SCH ×2 (17:13→22:01)
[2017-12-21] MEDS: WARFARIN SODIUM 1 MG TABLET PO SCH (17:46)
[2017-12-21] MEDS: SIMVASTATIN 20 MG TABLET PO SCH (20:36)
[2017-12-22] MEDS: IPRATROPIUM/ALBUTEROL SULFATE 3 ML AMPUL.NEB NEB SCH ×6 (01:25→20:26)
[2017-12-22] MEDS: POTASSIUM CHLORIDE 10 MEQ TABLET.ER PO SCH (06:56)
[2017-12-22] MEDS: amLODIPine BESYLATE 5 MG TABLET PO SCH (08:49)
[2017-12-22] MEDS: CARVEDILOL 12.5 MG TABLET PO SCH ×2 (08:49→20:34)
[2017-12-22] MEDS: SALINE FLUSH 10 ML DISP.SYRIN IV SCH ×2 (08:49→20:35)
[2017-12-22] MEDS: NICOTINE 21mg 1 EACH PATCH.TD24 TD SCH (08:49)
[2017-12-22] MEDS: LISINOPRIL 20 MG TABLET PO SCH (08:50)
[2017-12-22] MEDS: BUDESONIDE 0.5MG/2ML AMPUL.NEB NEB SCH ×2 (09:26→20:27)
--- NOTE | 2017-12-22 09:34 | Inpatient Progress Note ---
Subjective - Required Recertification Statement I anticipate X number of days because-include discharge plan: 2 - Review of Systems Events since last encounter: Kian is feeling a little better. He is now willing to see Hospice. His breathing treatments are now Q4h and this is helping. General: Denies: Chills, Night Sweats HEENT: Denies: Head Aches Pulmonary: Dyspnea, Cough Cardiovascular: Denies: Chest Pain Gastrointestinal: Denies: Nausea, Vomiting Genitourinary: Denies: Dysuria Musculoskeletal: Denies: Neck Pain Neurological: Weakness. Denies: Change in Speech, Confusion Objective - Exam Vitals and I&O: Vital Signs Temp 98.2 F 12/22/17 02:00 Pulse 67 12/22/17 07:00 Resp 18 12/22/17 06:00 BP 158/67 12/22/17 06:00 Pulse Ox 100 12/22/17 06:00 Intake & Output 12/21/17 12/21/17 12/22/17 11:59 23:59 11:59 Intake Total 240 615 360 Output Total 300 Balance -60 615 360 Intake: Oral 240 615 360 Output: Urine 300 Other: Voiding Method Urinal Urinal Urinal # Voids 2 2 General: Alert, Oriented to Person, Oriented to Place, Oriented to Time, Cooperative, Mild distress (respiratory) HEENT: Atraumatic, PERRLA Neck: Supple, No JVD Lungs: Respiratory Distress, Prolonged Expiration, Decreased Air Movement Cardiovascular: Irregularly Irregular Abdomen: Normal bowel sounds, Soft, No tenderness Extremities: No clubbing, No cyanosis, No edema Skin: Normal, [place] Neurological: Normal speech Psych/Mental Status: Mental status NL - Results Results: Laboratory Results WBC 5.20 K/ul (4.00-12.00) 12/21/17 07:25 RBC 3.19 M/ul (3.90-5.20) L 12/21/17 07:25 Hgb 9.9 g/dL (12.0-18.0) L 12/21/17 07:25 Hct 32.2 % (37.0-53.0) L 12/21/17 07:25 MCV 100.9 fl (80.0-100.0) H 12/21/17 07:25 MCH 30.9 pg (28.0-34.0) 12/21/17 07:25 MCHC 30.6 g/dL (30.0-36.0) 12/21/17 07:25 RDW 16.6 % (11.3-14.3) H 12/21/17 07:25 Plt Count 150 K/mm3 (130-400) 12/21/17 07:25 Neut % (Auto) 62.2 % (39.0-79.0) 12/18/17 04:59 Lymph % (Auto) 19.2 % (16.0-50.0) 12/18/17 04:59 [place] % (Auto) 5.9 % (0.0-11.0) 12/18/17 04:59 Eos % (Auto) 10.0 % (0.0-6.8) 12/18/17 04:59 Baso % (Auto) 1.4 (0.0-1.5) 12/18/17 04:59 Neut # (Auto) 4.0 # k/uL (1.4-7.7) 12/18/17 04:59 Lymph # (Auto) 1.2 # k/uL (0.6-4.0) 12/18/17 04:59 [place] # (Auto) 0.4 # k/uL (0.0-0.9) 12/18/17 04:59 Eos # (Auto) 0.6 # k/uL (0.0-0.6) 12/18/17 04:59 Baso # (Auto) 0.1 # k/uL (0.0-0.5) 12/18/17 04:59 Reactive Lymphs % 1.3 % (0.0-5.0) 12/18/17 04:59 Reactive Lymphs # 0.1 # k/uL (0.0-0.8) 12/18/17 04:59 Plt Morphology Comment Normal (NORMAL) 12/18/17 04:59 Hypochromasia 2+ (NEGATIVE) H 12/18/17 04:59 Poikilocytosis 1+ (NEGATIVE) H 12/18/17 04:59 Macrocytosis 1+ (NEGATIVE) H 12/18/17 04:59 RBC Morph Comment Abnormal (NORMAL) H 12/18/17 04:59 PT 13.7 Seconds (9.4-11.6) H 12/18/17 04:59 INR 1.30 (0.9-1.2) H 12/18/17 04:59 APTT 24.3 Seconds (24.5-32.8) L 12/18/17 04:59 Sodium 146 mmol/L (136-145) H 12/21/17 07:25 Potassium 5.2 mmol/L (3.5-5.1) H 12/21/17 07:25 Chloride 100 mmol/L (98-107) 12/21/17 07:25 Carbon Dioxide 36 mmol/L (22-30) H 12/21/17 07:25 BUN 50 mg/dL (9-20) H 12/21/17 07:25 Creatinine 2.00 mg/dL (0.66-1.25) H 12/21/17 07:25 Estimated Creat Clear 24 12/21/17 07:25 Est GFR ( Amer) 42 (60-) L 12/21/17 07:25 Est GFR (Non-Af Amer) 35 (60-) L 12/21/17 07:25 Glucose 87 mg/dL (74-106) 12/21/17 07:25 Calcium 11.5 mg/dL (8.4-10.2) H 12/21/17 07:25 Total Bilirubin 0.9 mg/dL (0.2-1.3) 12/21/17 07:25 AST 22 U/L (15-46) 12/21/17 07:25 ALT 29 U/L (13-69) 12/21/17 07:25 Alkaline Phosphatase 55 U/L (38-126) 12/21/17 07:25 Creatine Kinase 47 U/L (55-170) L 12/18/17 04:59 CK-MB (CK-2) 1.8 ng/mL (0.0-5.6) 12/18/17 04:59 Troponin I < 0.03 ng/mL (0.03-0.06) L 12/18/17 04:59 NT-Pro-B Natriuret Pep 7813.8 pg/mL (15.0-450.0) H 12/18/17 04:59 Total Protein 6.3 g/dL (6.3-8.2) 02/04/18 07:25 Albumin 3.2 g/dL (3.5-5.0) L 12/21/17 07:25 Assessment/Plan - Assessment/Plan (1) Anemia Status: Acute Current Visit: No Qualifiers: Anemia type: iron deficiency Iron deficiency anemia type: chronic blood loss Qualified Code(s): D50.0 - Iron deficiency anemia secondary to blood loss (chronic) Assessment: Stable Plan: Will check CBC in am (2) CHF (congestive heart failure) Status: Acute Current Visit: Yes Qualifiers: Congestive heart failure type: unspecified Congestive heart failure chronicity: unspecified Qualified Code(s): I50.9 - Heart failure, unspecified Assessment: Improved (3) COPD (chronic obstructive pulmonary disease) Status: Acute Current Visit: No Qualifiers: COPD type: emphysema Emphysema type: panlobular Qualified Code(s): J43.1 - Panlobular emphysema Assessment: Improved with more frequent nebulizer treatments (4) Atrial fibrillation Status: Acute Current Visit: Yes Qualifiers: Atrial fibrillation type: chronic Qualified Code(s): I48.2 - Chronic atrial fibrillation Assessment: Continue warfarin, check INR in am
[2017-12-22] MEDS: WARFARIN SODIUM 1 MG TABLET PO SCH (18:00)
[2017-12-22] MEDS: SIMVASTATIN 20 MG TABLET PO SCH (20:35)
[2017-12-23] MEDS: IPRATROPIUM/ALBUTEROL SULFATE 3 ML AMPUL.NEB NEB SCH ×3 (01:45→09:53)
[2017-12-23 07:01] LABS: MEAN CORPUSCULAR HEMOGLOBIN 30.8 pg (28.0-34.0); MEAN CORPUSCULAR VOLUME 99.6 fl (80.0-100.0)
[2017-12-23] MEDS: amLODIPine BESYLATE 5 MG TABLET PO SCH (09:45)
[2017-12-23] MEDS: LISINOPRIL 20 MG TABLET PO SCH (09:45)
[2017-12-23] MEDS: NICOTINE 21mg 1 EACH PATCH.TD24 TD SCH (09:45)
[2017-12-23] MEDS: POTASSIUM CHLORIDE 10 MEQ TABLET.ER PO SCH (09:45)
[2017-12-23] MEDS: SALINE FLUSH 10 ML DISP.SYRIN IV SCH (09:46)
[2017-12-23] MEDS: CARVEDILOL 12.5 MG TABLET PO SCH (09:47)
[2017-12-23] MEDS: BUDESONIDE 0.5MG/2ML AMPUL.NEB NEB SCH (11:04)
[2017-12-23 13:47] VITALS: BP 152/68
--- NOTE | 2017-12-24 09:54 | Discharge Summary ---
DATE OF ADMISSION: December 18, 2017 DATE OF DISCHARGE: December 23, 2017 DIAGNOSES ON THIS HOSPITALIZATION: 1. Chronic blood loss anemia. 2. Chronic atrial fibrillation. 3. Congestive heart failure. 4. Chronic obstructive pulmonary disease (COPD) with continued smoking. SUMMARIZATION OF ADMISSION HISTORY AND PHYSICAL: This is a 77-year-old male with multiple medical problems well known to myself who presented to the emergency on the day of admission with a complaint of increasing shortness of breath and wheezing. He had gotten so weak he was unable to move at home. He was noted in the emergency room to have a hemoglobin of 7.7 and a BNP of 7813. HOSPITAL COURSE: He was admitted. He was transfused 2 units of packed red blood cells. His hemoglobin actually stayed fairly steady. Aggressive nebulizer treatments helped his shortness of breath. He failed to demonstrate any infiltrates on his chest x-ray. He was discharged under hospice care to home today, December, with the following medications. CONDITION ON DISCHARGE: He is discharged to home in improved condition. MEDICATIONS ON DISCHARGE: 1. Amlodipine 10 mg p.o. daily. 2. Pulmicort 0.5 mg 1 vial q.i.d. 3. Carvedilol 25 mg p.o. b.i.d. 4. DuoNeb 1 vial every 4 hours buy nebulizer. 5. Lisinopril 40 mg daily. 6. Warfarin 5 mg daily. 7. Simvastatin 10 mg p.o. at bedtime. 8. Potassium chloride 10 mEq p.o. daily. 9. Lasix 40 mg daily. DISCHARGE INSTRUCTIONS: Hospice will draw an INR on Friday. JUNIOR
== END 2017-12-23 12:40 | disposition home or self-care (01) | DRG 812 ==
LOC: ED 04:29 → SOUTH 06:36
PROVIDERS: ADMIT Family Medicine; ATTEND Family Medicine
DX: D50.0 Iron deficiency anemia secondary to blood loss (chronic) (principal); J44.1 Chronic obstructive pulmonary disease with (acute) exacerbation; I50.9 Heart failure, unspecified; F17.210 Nicotine dependence, cigarettes, uncomplicated; I48.91 Unspecified atrial fibrillation; G47.30 Sleep apnea, unspecified; E78.5 Hyperlipidemia, unspecified; Z79.01 Long term (current) use of anticoagulants
CPT/HCPCS: 36415; 71010; 71020; 74000; 80053; 82550; 82553; 83880; 84484; 85025; 85027; 85610; 85730; 86885; 86900; 86901; 86920; 94640; 96374; 99222; 99232; 99238; 99284; J1940; J7626; P9040; Q0163